=== PATIENT | female | born 1960 | race Caucasian/White ===

== ENCOUNTER → 2016-11-29 | Outpatient (CLI) | payer BC | END | disposition home or self-care (01) | LOC: GMA 14:16 | PROVIDERS: ATTEND Nurse Practitioner Acute Care | DX: R30.0 Dysuria (principal) ==

== ENCOUNTER 2016-12-25 22:55 | Emergency (ER) | payer BC ==
--- NOTE | 2016-12-25 23:27 | RAD ---
EXAM DESCRIPTION: Foot,Right 3 Views CLINICAL HISTORY: fall with right foot pain COMPARISON: None FINDINGS: AP, lateral and oblique views of the right foot were submitted. Acute fracture dislocation of the tarsometatarsal junction compatible with a Lisfranc injury. Correlation with a CT is recommended for further evaluation. There is no radiopaque foreign body material IMPRESSION: Acute fracture dislocation at the tarsometatarsal junction compatible with a Lisfranc injury. Correlation with a CT is recommended for further evaluation. Electronically signed by: Servando Lopez MD 12/25/2016 11:26 PM CDT
--- NOTE | 2016-12-25 23:28 | ED.PDOC ---
History of Present Illness - General Chief Complaint: Trauma Stated Complaint: fall Time Seen by Provider: 12/25/16 23:21 Source: patient Exam Limitations: no limitations - History of Present Illness Initial Comments: Sandra Woods 56 y/o female stated while going down the stairstep at home stepped on a frog then slipped fell right foot hitting cleanup gutter and twisted it.Pain on weight bearing of right foot. Occurred: just prior to arrival, this evening Pain - Lower Extremity: moderate: Right Foot Method of Injury: fell, twisted - right foot Improving Factors: rest Worsening Factors: movement Allergies/Adverse Reactions: Allergies NO KNOWN ALLERGY Allergy (Verified 12/25/16 23:09) Home Medications: Ambulatory Orders Acetaminophen W/ Codeine [Tylenol W/ CODEINE #3] 1 ea PO Q4HR PRN #20 12/26/16 Review of Systems - Review of Systems Constitutional: States: no symptoms reported EENTM: States: no symptoms reported Respiratory: States: no symptoms reported Cardiology: States: no symptoms reported Gastrointestinal/Abdominal: States: no symptoms reported Genitourinary: States: no symptoms reported Musculoskeletal: States: see HPI Skin: States: no symptoms reported Neurological: States: no symptoms reported Endocrine: States: no symptoms reported Past Medical History (General) - Patient Medical History Hx Asthma: Yes Hx of COPD: Yes Surgical History: cholecystectomy, other - hysterectomy - Social History Hx Physical Abuse: No Hx Emotional Abuse: No Hx Suspected Abuse: No - Activities of Daily Living Patient Lives Alone: No - family Grooming Ability: Independent Eating (Feeding) Ability: Independent Toileting Ability: Independent - Female History Patient is a Female of Child Bearing Age (10 -59 yrs old): No Family Medical History - Family History Son Hx Family Hypertension: Yes Hx Cardiac Disease: Yes Hx Family Diabetes: Yes Mother Family History: No Known Living Status: Still Living Physical Exam - Physical Exam General Appearance: Alert, Comfortable, No apparent distress Eyes, Ears, Nose, Throat: PERRL/EOMI, normal ENT inspection, TMs normal Neck: non-tender, full range of motion, supple Cardiovascular/Respiratory: regular rate, rhythm, no M/R/G, normal peripheral pulses Gastrointestinal/Abdominal: non-tender, no organomegaly Back: normal inspection, no CVA tenderness, no vertebral tenderness Thigh/Hip: normal inspection, non-tender, no evidence of injury Leg: normal inspection, non-tender, no evidence of injury Knee: normal inspection, non-tender, no evidence of injury Ankle: normal inspection, non-tender, no evidence of injury Foot: bone tenderness - right foot, limited ROM, soft tissue tenderness, swelling Neuro/Tendon: normal sensation, normal motor functions, normal tendon functions , responds to pain Mental Status: alert, oriented x 3 Skin: normal color, warm/dry Progress - Progress Progress: 12/26/16 02:24 Posterior leg splint applied by the nurse - EKG/XRAY/CT XRAY: acute comminuted fractures of the base of 1st,2nd,3rd meteatarsal bone w/ dorsal displacement dislocation.Please refer to full ct report Departure - Departure Clinical Impression: Fall (on) (from) other stairs and steps, initial encounter Fracture of metatarsal bone of right foot Qualifiers: Encounter type: initial encounter Metatarsal bone: unspecified metatarsal Fracture type: closed Fracture alignment: displaced Qualified Code(s): S92.301A - Fracture of unspecified metatarsal bone(s), right foot, initial encounter for closed fracture Time of Disposition: 02:27 Disposition: Discharge to Home or Self Care Departure Forms: ED Discharge - Pt. Copy, Patient Portal Self Enrollment Instructions: DI for Foot Fracture, Foot Fracture Referrals: Danyel Sheets MD [Primary Care Provider] - 1-2 Weeks Prescriptions: Acetaminophen W/ Codeine [Tylenol W/ CODEINE #3] 1 ea PO Q4HR PRN #20 PRN Reason: Pain Home Medications: Ambulatory Orders Acetaminophen W/ Codeine [Tylenol W/ CODEINE #3] 1 ea PO Q4HR PRN #20 12/26/16
[2016-12-26 00:57] VITALS: O2SAT 98
[2016-12-26] MEDS ORDERED: HYDROcodone 10MG/APAP 325MG 1 EA TAB PO ONE (01:43)
[2016-12-26] MEDS ORDERED: MORPHINE SULFATE INJ 10 MG/ML VIAL IM ONE (01:44)
--- NOTE | 2016-12-26 01:55 | CT ---
EXAM DESCRIPTION: Lower Extremity CLINICAL HISTORY: pain right foot COMPARISON: Plain films performed the same day TECHNIQUE: Contiguous axial images of the right foot were obtained followed by reconstruction images. This exam was performed according to our departmental dose-optimization program, which includes automated exposure control, adjustment of the mA and/or kV according to patient size and/or use of iterative reconstruction technique. FINDINGS: There is an acute fracture dislocation at the level of the metatarsal tarsal junction with comminuted fractures at the base of the first, second and third metatarsal bones. There is dorsal displacement of the third, second and first metatarsal bones in relation to the tarsal bones. There is an enthesophyte at the plantar aspect of the calcaneus. There is a nondisplaced oblique fracture also noted at the shaft of the first metatarsal bone. There is a small fracture of the anterior aspect of the medial cuneiform. IMPRESSION: Acute comminuted fractures of the base of the first, second and third metatarsal bone with dorsal displacement/dislocation. Small fracture of the anterior aspect of the medial cuneiform and nondisplaced fracture at the shaft of the first metatarsal bone. Electronically signed by: Servando Lopez MD 12/26/2016 1:53 AM CDT
[2016-12-26] MEDS ORDERED: HYDROCOD/APAP 10/325 (ER DISP) # 3 tablets PO ONE (02:16)
[2016-12-26 03:07] VITALS: BP 124/66; TEMP 97.2
== END 2016-12-26 02:50 | disposition home or self-care (01) ==
LOC: ER 22:55
DX: S92.301A Fracture of unspecified metatarsal bone(s), right foot, initial encounter for closed fracture (principal); J44.9 Chronic obstructive pulmonary disease, unspecified; W10.9XXA Fall (on) (from) unspecified stairs and steps, initial encounter; Y92.009 Unspecified place in unspecified non-institutional (private) residence as the place of occurrence of the external cause
CPT/HCPCS: 73630; 73700; J2270

== ENCOUNTER 2017-06-16 13:42 | Emergency (ER) | payer BC ==
[2017-06-16] MEDS ORDERED: NITROGLYCERIN 0.4 MG 25 EA TAB SL ONE (14:06)
[2017-06-16] MEDS ORDERED: ASPIRIN (CHEWABLE) 81 MG TAB PO ONE (14:06)
[2017-06-16 14:07] VITALS: TEMP 99.6
--- NOTE | 2017-06-16 14:08 | ED.PDOC ---
History of Present Illness - General Chief Complaint: Respiratory Problem Stated Complaint: shortness of breath,cough Time Seen by Provider: 06/16/17 14:05 Source: patient Exam Limitations: no limitations - History of Present Illness Initial Comments: Raissa Woods 57 y/o female came to ER with 2 days history of productive cough , SOB,and rapid heart rate.Denies chest pains,dizziness chills .fever. Timing/Duration: other - 48 hours Severity: moderate Activities at Onset: none Possible Cause: unknown cause Improving Factors: nothing Worsening Factors: nothing Associated Symptoms: cough Respiratory Risk Factors: no cause identified Allergies/Adverse Reactions: Allergies NO KNOWN ALLERGY Allergy (Verified 12/25/16 23:09) Home Medications: Ambulatory Orders levoFLOXacin [Levaquin] 500 mg PO DAILY #7 tab 06/16/17 Review of Systems - Review of Systems Constitutional: States: no symptoms reported EENTM: States: nose congestion Respiratory: States: see HPI, cough Cardiology: States: no symptoms reported Gastrointestinal/Abdominal: States: no symptoms reported Genitourinary: States: no symptoms reported Musculoskeletal: States: no symptoms reported Skin: States: no symptoms reported Neurological: States: no symptoms reported All other Systems: Reviewed and Negative, No Change from Baseline Past Medical History (General) - Patient Medical History Hx Stroke: No Hx Asthma: Yes Hx of COPD: Yes Hx Congestive Heart Failure: No Hx Diabetes: No Surgical History: cholecystectomy, other - hysterectomy - Vaccination History Hx Tetanus, Diphtheria Vaccination: Yes - 1 year ago Hx Influenza Vaccination: No Hx Pneumococcal Vaccination: No - Social History Hx Tobacco Use: Yes Hx Chewing Tobacco Use: No Hx Alcohol Use: No Hx Substance Use: No Hx Substance Use Treatment: No Hx Depression: No Hx Physical Abuse: No Hx Emotional Abuse: No Hx Suspected Abuse: No - Female History Patient : No Family Medical History - Family History Mother Living Status: Son Hx Family Hypertension: Yes Hx Cardiac Disease: Yes Hx Family Diabetes: Yes Physical Exam - Physical Exam General Appearance: Alert, Comfortable, No apparent distress Eyes, Ears, Nose, Throat Exam: PERRL/EOMI, normal ENT inspection, pharynx normal Neck: non-tender, full range of motion, supple Respiratory: no respiratory distress, no accessory muscle use, rales Cardiovascular/Chest: normal peripheral pulses, no gallop, no murmur, tachycardia Peripheral Pulses: radial,right: 2+, radial,left: 2+ Gastrointestinal/Abdominal: normal bowel sounds, non tender, soft, no organomegaly Extremity: no pedal edema, no calf tenderness Neurologic: alert, oriented x 3 Skin Exam: normal color, warm/dry Progress - Progress Progress: 06/16/17 15:09 Vital Signs - 8 hr 06/16/17 13:58 Temperature 99.6 F Pulse Rate [ 127 H Right Brachial] Respiratory 20 Rate Blood Pressure 140/82 [Right Arm] O2 Sat by Pulse 91 L Oximetry - Results/Orders Results/Orders: Laboratory Tests 06/16/17 06/16/17 06/16/17 14:18 14:18 14:35 WBC 16.2 H RBC 4.92 Hgb 15.5 Hct 45.8 MCV 93.0 MCH 31.6 H MCHC 33.9 RDW 12.6 Plt Count 332 MPV 7.7 Absolute Neuts (auto) 12.50 H Absolute Lymphs (auto) 2.10 Absolute Monos (auto) 1.10 H Absolute Eos (auto) 0.20 Absolute Basos (auto) 0.20 H Neutrophils % 77.2 Lymphocytes % 13.2 L Monocytes % 7.0 Eosinophils % 1.4 Basophils % 1.2 PT 12.4 INR 1.100 PTT (SP) 27.4 D-Dimer, Quantitative < 230 Sodium 135 Potassium 3.9 Chloride 100 L Carbon Dioxide 26 Anion Gap 12.9 BUN 9 Creatinine 0.64 BUN/Creatinine Ratio 14.1 Random Glucose 114 H Serum Osmolality 269.6 L Lactic Acid Calcium 9.3 Magnesium 1.7 L Total Bilirubin 0.5 Direct Bilirubin < 0.1 Indirect Bilirubin 0.4 AST 36 ALT 46 Alkaline Phosphatase 155 H Creatine Kinase 70 CK-MB (CK-2) 1.6 CK-MB (CK-2) % Not Reportable Troponin I < 0.02 B-Natriuretic Peptide 19.7 Serum Total Protein 7.4 Albumin 3.7 Urine Color Urine Appearance Urine pH Ur Specific [place] Urine Protein Urine Glucose (UA) Urine Ketones Urine Blood Urine Nitrite Urine Bilirubin Urine Urobilinogen Ur Leukocyte Esterase Urine RBC Urine WBC Ur Epithelial Cells Urine Bacteria Urine Opiates Screen Negative Urine Barbiturates Negative Ur Phencyclidine Scrn Negative U Amphetamin/Meth Scrn Positive H U Benzodiazepines Scrn Negative U Cocaine Metab Screen Negative U Cannabinoids Screen Positive H 06/16/17 06/16/17 06/16/17 15:00 15:48 16:56 WBC RBC Hgb Hct MCV MCH MCHC RDW Plt Count MPV Absolute Neuts (auto) Absolute Lymphs (auto) Absolute Monos (auto) Absolute Eos (auto) Absolute Basos (auto) Neutrophils % Lymphocytes % Monocytes % Eosinophils % Basophils % PT INR PTT (SP) D-Dimer, Quantitative Sodium Potassium Chloride Carbon Dioxide Anion Gap BUN Creatinine BUN/Creatinine Ratio Random Glucose Serum Osmolality Lactic Acid 0.9 Calcium Magnesium Total Bilirubin Direct Bilirubin Indirect Bilirubin AST ALT Alkaline Phosphatase Creatine Kinase CK-MB (CK-2) CK-MB (CK-2) % Troponin I < 0.02 B-Natriuretic Peptide Serum Total Protein Albumin Urine Color Yellow Urine Appearance Sl cloudy Urine pH 8.0 H Ur Specific [place] 1.020 Urine Protein Negative Urine Glucose (UA) Negative Urine Ketones Negative Urine Blood Trace-intact H Urine Nitrite Positive H Urine Bilirubin Negative Urine Urobilinogen 0.2 Ur Leukocyte Esterase Negative Urine RBC 0-1 Urine WBC 3-5 H Ur Epithelial Cells 3-5 Urine Bacteria 4+ H Urine Opiates Screen Urine Barbiturates Ur Phencyclidine Scrn U Amphetamin/Meth Scrn U Benzodiazepines Scrn U Cocaine Metab Screen U Cannabinoids Screen - EKG/XRAY/CT EKG: Sinus, Tachy Comments: heart rate 123 XRAY: chest - mild interstitial infiltrate right lung base Departure - Departure Clinical Impression: Pneumonia Qualifiers: Pneumonia type: due to unspecified organism Laterality: right Lung location: lower lobe of lung Qualified Code(s): J18.1 - Lobar pneumonia, unspecified organism Urinary tract infection Qualifiers: Urinary tract infection type: site unspecified Hematuria presence: without hematuria Qualified Code(s): N39.0 - Urinary tract infection, site not specified Time of Disposition: 18:36 Disposition: Discharge to Home or Self Care Departure Forms: ED Discharge - Pt. Copy, Patient Portal Self Enrollment Instructions: DI for Pneumonia -- Adult, Urinary Tract Infection, DI for Urinary Tract Infection (UTI) Referrals: Bill Avendaño MD [Primary Care Provider] - 1-2 Weeks Prescriptions: levoFLOXacin [Levaquin] 500 mg PO DAILY #7 tab Home Medications: Ambulatory Orders levoFLOXacin [Levaquin] 500 mg PO DAILY #7 tab 06/16/17 Additional Instructions: Return to emergency room as needed;Follow up with primary Md 06/20/2017;May take over the counter cough medicine Delsym 2 teaspoons am/pm for cough
--- NOTE | 2017-06-16 14:30 | RAD ---
EXAM DESCRIPTION: Chest,1 View CLINICAL HISTORY: pain COMPARISON: 06 February 2009 TECHNIQUE: AP portable chest FINDINGS: Minimal interstitial infiltrate is observed at the right lung base. The left chest is clear. The heart is within range of normal. IMPRESSION: Mild interstitial infiltrate is observed at the right lung base. Electronically signed by: Aron Oates MD 06/16/2017 2:29 PM [facility]
[2017-06-16] MEDS ORDERED: IPRATROPIUM/ALBUTEROL 3 ML VIAL NEB ONE (14:58)
[2017-06-16] MEDS ORDERED: SODIUM CHLORIDE 0.9% 500ML 500 ML IVS ONE (15:00)
[2017-06-16] MEDS ORDERED: MAGNESIUM SULFATE PREMIX 2GM 2 GM in PREMIX BAG 1 BAG IVPB ONE (15:01)
[2017-06-16] MEDS ORDERED: MAGNESIUM SULFATE PREMIX 2GM 50 ML IVPB ONE (15:36)
[2017-06-16] MEDS ORDERED: levoFLOXacin 500MG IV 500 MG in PREMIX BAG 1 BAG IVPB ONE (17:00)
[2017-06-16] MEDS ORDERED: levoFLOXacin 500MG IV 100 ML IVPB ONE (17:27)
[2017-06-16 18:45] VITALS: BP 128/77; O2SAT 94
== END 2017-06-16 18:45 | disposition home or self-care (01) ==
LOC: ER 13:42
DX: J18.1 Lobar pneumonia, unspecified organism (principal); N39.0 Urinary tract infection, site not specified; J44.9 Chronic obstructive pulmonary disease, unspecified; Z87.891 Personal history of nicotine dependence
CPT/HCPCS: 36415; 71045; 80048; 80076; 80307; 81001; 82550; 82553; 83605; 83880; 84484; 85025; 85379; 85610; 85730; 87086; 87804; 93005; 94640; J1956; J3475; J7040; J7620

== ENCOUNTER 2017-09-04 09:07 | Inpatient (IN) | payer BC ==
[2017-09-04] MEDS ORDERED: methylPREDNISolone SODIUM SUC 125 MG/2 ML VIAL IV ONE (09:27)
[2017-09-04] MEDS ORDERED: IPRATROPIUM/ALBUTEROL 3 ML VIAL NEB ONE (09:27)
--- NOTE | 2017-09-04 09:33 | ED.PDOC ---
History of Present Illness - General Chief Complaint: Respiratory Problem Stated Complaint: Increasing shortness of breath Time Seen by Provider: 09/04/17 09:20 Source: patient Exam Limitations: no limitations - History of Present Illness Initial Comments: Patient comes in with 3 day history of worsening shortness of breath. Patient has been told in the past that she has COPD. However, this has always been in the ER and she is not on any controller medications. She states 2 weeks ago she had an episode and was given steroids and antibiotics. She got better but admits she did not finish the antibiotics. She states something else has to be going on because it keeps coming back. Several days ago her grandchildren were sick and she became ill sightly after. She had subjective fever, nasal congestion, and burning of her eyes. She has been coughing up thick yellow mucous. She now cannot catch her breath and her chest feels tight with deep inspiration. PMH 1. COPD PSH 1. Hyst 2. Allison Social >40 pack year history with 1 pack a day smoking now. No ETOH no drug use Timing/Duration: days - 3 days Severity: severe Activities at Onset: other - had several days of cough, congestion, subjective fever Possible Cause: occasional episodes Improving Factors: nothing Worsening Factors: movement Associated Symptoms: cough, weakness, wheezing Respiratory Risk Factors: no cause identified Allergies/Adverse Reactions: Allergies NO KNOWN ALLERGY Allergy (Verified 09/04/17 09:19) Home Medications: Ambulatory Orders NK [NK] 09/04/17 Review of Systems - Review of Systems Constitutional: States: fever. Denies: chills EENTM: States: nose congestion. Denies: eye pain, ear pain, ear discharge Respiratory: States: cough, orthopnea, wheezing Cardiology: States: no symptoms reported. Denies: chest pain, edema, palpitations Gastrointestinal/Abdominal: States: no symptoms reported. Denies: abdominal pain, constipation, diarrhea, nausea, vomiting Genitourinary: States: no symptoms reported Musculoskeletal: States: no symptoms reported Skin: States: no symptoms reported Neurological: States: no symptoms reported Past Medical History (General) - Patient Medical History Hx Stroke: No Hx Asthma: Yes Hx of COPD: Yes Hx Congestive Heart Failure: No Hx Diabetes: No Surgical History: cholecystectomy - Vaccination History Hx Tetanus, Diphtheria Vaccination: Yes - 1 year ago Hx Influenza Vaccination: No Hx Pneumococcal Vaccination: No - Social History Hx Tobacco Use: Yes Hx Chewing Tobacco Use: No Hx Alcohol Use: No Hx Substance Use: No Hx Substance Use Treatment: No Hx Depression: No Hx Physical Abuse: No Hx Emotional Abuse: No Hx Suspected Abuse: No - Female History Patient : No Family Medical History - Family History Mother Living Status: Son Hx Family Hypertension: Yes Hx Cardiac Disease: Yes Hx Family Diabetes: Yes Physical Exam - Physical Exam General Appearance: Alert, Comfortable Eyes, Ears, Nose, Throat Exam: PERRL/EOMI, TMs normal, pharynx normal Neck: non-tender, full range of motion, supple, normal inspection Respiratory: wheezing, other - tight BS in all artis with wheezes and no crackles Cardiovascular/Chest: regular rate, rhythm, no edema, no gallop, no JVD, no murmur Peripheral Pulses: radial,right: 2+ Gastrointestinal/Abdominal: normal bowel sounds, non tender, soft, no organomegaly, no pulsatile mass Neurologic: alert, oriented x 3 Progress - Progress Progress: 09/04/17 10:30 09/05/17 09:00 [facility] Daily Laboratory Results WBC 15.7 K/mm3 (4.8-10.8) H 09/04/17 09:39 RBC 4.82 M/mm3 (4.20-5.40) 09/04/17 09:39 Hgb 15.3 gm/dL (12.0-16.0) 09/04/17 09:39 Hct 45.3 % (36.0-47.0) 09/04/17 09:39 MCV 93.9 fl (81.0-99.0) 09/04/17 09:39 MCH 31.7 pg (27.0-31.0) H 09/04/17 09:39 MCHC 33.7 g/dL (33.0-37.0) 09/04/17 09:39 RDW 12.8 % (11.5-14.5) 09/04/17 09:39 Plt Count 299 K/mm3 (130-400) 09/04/17 09:39 MPV 7.8 fl (7.40-10.4) 09/04/17 09:39 Absolute Neuts (auto) 12.20 K/uL (1.8-6.8) H 09/04/17 09:39 Absolute Lymphs (auto) 2.10 K/uL (1.0-3.4) 09/04/17 09:39 Absolute Monos (auto) 0.90 K/uL (0.2-0.8) H 09/04/17 09:39 Absolute Eos (auto) 0.40 K/uL (0.0-0.4) 09/04/17 09:39 Absolute Basos (auto) 0.10 K/uL (0.0-0.1) 09/04/17 09:39 Neutrophils % 77.8 % (42.0-78.0) 09/04/17 09:39 Lymphocytes % 13.3 % (20.0-50.0) L 09/04/17 09:39 Monocytes % 5.6 % (2.0-9.0) 09/04/17 09:39 Eosinophils % 2.4 % (1.0-5.0) 09/04/17 09:39 Basophils % 0.9 % (0.0-2.0) 09/04/17 09:39 Sodium 140 mmol/L (135-145) 09/04/17 09:39 Potassium 4.3 mmol/L (3.6-5.0) 09/04/17 09:39 Chloride 105 mmol/L (101-111) 09/04/17 09:39 Carbon Dioxide 28 mmol/L (21-31) 09/04/17 09:39 Anion Gap 11.3 (12-18) L 09/04/17 09:39 BUN 13 mg/dL (7-18) 09/04/17 09:39 Creatinine 0.70 mg/dL (0.6-1.3) 09/04/17 09:39 BUN/Creatinine Ratio 18.6 (10-20) 09/04/17 09:39 Random Glucose 183 mg/dL (70-105) H 09/04/17 09:39 Serum Osmolality 284.2 mOsm/L (275-295) 09/04/17 09:39 Calcium 9.4 mg/dL (8.4-10.2) 09/04/17 09:39 Total Bilirubin 0.7 mg/dL (0.2-1.0) 09/04/17 09:39 AST 44 IU/L (10-42) H 09/04/17 09:39 ALT 49 IU/L (10-60) 09/04/17 09:39 Alkaline Phosphatase 127 IU/L (42-121) H 09/04/17 09:39 Troponin I 0.02 ng/mL (0.01-0.05) 09/04/17 09:39 B-Natriuretic Peptide 18.7 pg/ml (0-100) 09/04/17 09:39 Serum Total Protein 7.7 gm/dL (6.4-8.2) 09/04/17 09:39 Albumin 3.6 g/dl (3.2-5.5) 09/04/17 09:39 Globulin 4.1 gm/dL (2.3-3.5) H 09/04/17 09:39 Albumin/Globulin Ratio 0.9 (1.1-1.9) L 09/04/17 09:39 - Results/Orders Results/Orders: Patient Name: SAMANTHA CHAVEZ Gender: Female Date of : 1960 Referring Physician: HUNTER BENNETT Organization: [facility] Accession Number: [id number] Requested Date: September 04, 2017 09:27 Report Status: Final Requested Procedure: 1 Procedure Description: Chest,2 Views Modality: CR Findings Reporting MD: Cj Randall Fellow MD: Not available Dictation Time: Cupola Melter Helper: Not available Scientific Programmer Date: Procedure: XR CHEST 2 VIEWS Exam Date: 09/04/2017 9:27 AM CDT Ordering Provider: HUNTER BENNETT Clinical Indication: SOB/COPD Comparison: June 16, 2017 Findings: Lungs are hyperexpanded. No lobar consolidation, pleural effusion, or pneumothorax. Heart size is within normal limits. No acute osseous abnormality. Impression: COPD. No lobar consolidation. Departure - Departure Clinical Impression: COPD exacerbation Disposition: Admit Patient Condition: Good Departure Forms: ED Discharge - Pt. Copy, Patient Portal Self Enrollment Referrals: Bill Avendaño MD [Primary Care Provider] - 1-2 Weeks Home Medications: Ambulatory Orders NK [NK] 09/04/17 Comments: called for admission. Patient has O2 Sats of 86-90 % on RA and lungs have not cleared despited 4 breathing treatments and IV Solumedrol. Accepted by credit and collections representative [employer] [facility] at [phone]
[2017-09-04] MEDS ORDERED: LEVALBUTEROL NEBS 1.25 MG/3 ML VIAL NEB ONE ×2 (09:58→10:34)
--- NOTE | 2017-09-04 09:59 | RAD ---
Procedure: XR CHEST 2 VIEWS Exam Date: 09/04/2017 9:27 AM CDT Ordering Provider: HUNTER BENNETT Clinical Indication: SOB/COPD Comparison: June 16, 2017 Findings: Lungs are hyperexpanded. No lobar consolidation, pleural effusion, or pneumothorax. Heart size is within normal limits. No acute osseous abnormality. Impression: COPD. No lobar consolidation. Electronically signed by: Cj Randall MD 09/04/2017 9:58 AM CDT
[2017-09-04] MEDS ORDERED: cefTRIAXone SODIUM 2 GM in SODIUM CHL 0.9% 100ML MINI-BAG 100 ML IVPB ONE (10:35)
[2017-09-04] MEDS ORDERED: SODIUM CHL 0.9% 100ML MINI-BAG 100 ML IVPB ONE (10:53)
--- NOTE | 2017-09-04 13:57 | HP ---
SUPERVISING PHYSICIAN: Clarence Little M.D. CHIEF COMPLAINT: Worsening shortness of breath. HISTORY OF PRESENT ILLNESS: Ms. Woods is a 57 year-old female that presented to the Emergency Department today complaining of increasing shortness of breath that has been occurring over the last 3 days. She has been treated for chronic obstructive pulmonary disease in the past and actually is supposed to be wearing oxygen at home and is on Symbicort which she reports she does need it as needed. She does have a history of smoking approximately a pack a day and continues to smoke. She noted that she had been in the walk-in clinic [facility] in the last 2 weeks and treated for an upper respiratory infection, and was started on Augmentin and tapering prednisone which she finished the steroid pack but stopped 4 days short of the Augmentin. She noted that she is beginning to have worsening shortness of breath with increasing purulent- looking sputum and due to worsening symptoms presented to the E. R. today for further evaluation and treatment. She denied any chest pains on admission. Laboratory studies showed she did have a leukocytosis of 15,700 with a left shift. Vital signs showed that she was hypoxic on room air satting 87% at rest , but was afebrile with a temperature of 98.7, initially short of breath with respirations of 28 improving after a breathing treatment. Her chest x-ray per radiology interpretation showed COPD but no lobular consolidations. Given her degree of desaturation and having failed to respond to outpatient treatment plan of previous exacerbation of COPD, the patient is now going to be admitted to the Medical/Surgical floor for ongoing treatment of exacerbation of COPD with concerns for possible early pneumonia. She was admitted in stable condition. PAST MEDICAL HISTORY: 1. Chronic obstructive pulmonary disease with poor control. PAST SURGICAL HISTORY: 1. Hysterectomy. 2. Cholecystectomy. 3. Right foot surgery in 2017. CURRENT MEDICATIONS: 1. Symbicort. 2. Augmentin. 3. Tapering prednisone pack. ALLERGIES: NO KNOWN DRUG ALLERGIES. FAMILY HISTORY: Unremarkable and noncontributory. SOCIAL HISTORY: The patient lives in [place]. She is retired. 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 She is and lives with her ex-. She does smoke 1 pack a day and has for approximately 30 years. She denies any alcohol or illicit drug use. REVIEW OF SYSTEMS: CONSTITUTIONAL: Denies any chills but notes a subjective fever and general malaise. HEENT: Notes nasal congestion. Denies any ear aches, sore throat. RESPIRATORY: As noted in History of Present Illness, increasing cough with orthopnea and exertional dyspnea. CARDIOVASCULAR: Denies any chest pains, palpitations or pedal edema. GASTROINTESTINAL: Denies any abdominal pains, constipation, diarrhea or nausea or vomiting. GENITOURINARY: Denies any dysuria, hematuria or other urinary symptoms. NEUROLOGIC: Denies any ataxia, seizures or other neurological deficits. PHYSICAL EXAMINATION: VITAL SIGNS: Initial presentation to the E. . showed she had a temperature 98.7 with pulse 139. She was satting 89 to 91% on room air with some mild distress with respirations 28, blood pressure 123/87. After breathing treatment and initiation of treatment, she was satting up to 91% and 94% on nasal cannula. Heart rate 115, blood pressure 112/63. She was showing respirations of 20. Admission weight 77.0 kg. GENERAL: On admission to the Medical/Surgical floor, the patient appears to be comfortable in no acute distress, but somewhat anxious. HEENT: Tympanic membranes are clear bilaterally. Oropharynx was pink with posterior pharynx having some erythema but no lesions. NECK: Supple, non-tender with full range of motion. CHEST: Decreased breath sounds throughout with some inspiratory wheezing. No rales or rhonchi were noted. CARDIOVASCULAR: Regular rate and rhythm without appreciable murmurs, gallops, or rubs. ABDOMEN: Soft, non-tender. Positive bowel sounds. EXTREMITIES: No clubbing, cyanosis or edema. NEUROLOGIC: She is alert and oriented times three. LABORATORY STUDIES: Leukocytosis of 15,700 with hemoglobin 15.3, hematocrit 45.3 with a left shift. Chemistries showed normal electrolytes with potassium 4.3, BUN 13, creatinine 0.7, glucose 183, hemoglobin A1c was 6.1, magnesium 1.7. AST was 44, ALT normal at 49, alkaline phosphatase 127. Troponin 0.02. BNP was normal at 18. Urinalysis was pending. MICROBIOLOGY: Sputum culture is pending. Blood cultures are pending. Influenza A and B pending. Strep screen pending. RADIOLOGY: Chest x-ray in the Emergency Department showed per radiology interpretation COPD changes consistent with COPD but no lobular consolidations. ASSESSMENT: 1. Acute exacerbation of chronic obstructive pulmonary disease having failed to respond to outpatient treatment plan with concerns for early pneumonia community acquired. 2. Leukocytosis with concerns for early pneumonia as noted in #1, possibly some exacerbation from recent steroid administration. 3. Hypoxia as noted with room air saturations of 89% at rest in a chronic smoker with chronic obstructive pulmonary disease exacerbation. 4. Poor medical compliance regarding chronic obstructive pulmonary disease treatment. 5. Nicotine addiction in a chronic smoker encouraged to stop smoking. PLAN: The patient will be admitted to the Medical/Surgical floor for ongoing treatment of exacerbation of her chronic obstructive pulmonary disease. She will be started on aggressive pulmonary hygiene with chest percussive therapy, q.i.d. DuoNeb treatments, Pulmicort every 6 hours for at least 4 doses. She was given a dose of Solu-Medrol 125 mg to be continued every 6 hours at 60 mg for 4 doses. She will be on DVT prophylaxis. She will be started on Protonix for gastric protection given previous steroid administrations and current corticosteroid therapy. Will plan to do Pulmonary Function Test either today or tomorrow. The patient's length of stay anticipated to be at least 2 to 3 days. She has been started on antibiotics with concerns for underlying community acquired pneumonia with parenteral antibiotics to include Rocephin and azithromycin with sputum cultures pending. 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 She does note that she has oxygen at home which she does not wear on a regular basis and she also has Symbicort and a nebulizer machine that she takes albuterol for that she does not utilize. I did talk to her at length on smoking cessation and maintenance of her COPD in the near future. Once discharged, she will need close clinical followup and further management and possible pulmonary consultation as an outpatient. Until then, will continue to monitor and treat appropriately. #[id number] [facility]
[2017-09-04] MEDS ORDERED: ALBUTEROL SULFATE 2.5 MG/3 ML VIAL NEB PRN (14:59)
[2017-09-04] MEDS ORDERED: ACETAMINOPHEN 325 MG TAB PO PRN (14:59)
--- NOTE | 2017-09-04 15:08 | PCM.CORE ---
Physician DVT/VTE - Nurse DVT Assessment & Total Each Risk Factor Represents 1 Point: Age 41-60, Hx of smoking past year Each Risk Factor is 1 Point: Obesity (BMI >25) DVT Assessment Score: 3 - 3-4 High Risk Treatments: Early Ambulation *, Sequential Compression Device Pharmacological: Enoxaparin 40 mg SQ Daily
[2017-09-04] MEDS ORDERED: AZITHROMYCIN 250 MG TAB PO ONE (15:22)
[2017-09-04] MEDS ORDERED: NICOTINE PATCH 14 MG TD SCH (15:30)
[2017-09-04] MEDS: IPRATROPIUM/ALBUTEROL 3 ML VIAL NEB SCH ×2 (15:48→19:57)
[2017-09-04] MEDS: AZITHROMYCIN 250 MG TAB PO SCH (15:57)
[2017-09-04] MEDS: KCL 20MEQ/0.45% NS 1,000 ML IVS PRN (15:57)
[2017-09-04] MEDS: ENOXAPARIN SODIUM 40 MG/0.4 ML SYG SUBCU SCH (15:57)
[2017-09-04] MEDS: IV SET AND CAP CHANGE INJ INJ SCH (15:58)
[2017-09-04] MEDS ORDERED: MAGNESIUM SULFATE PREMIX 2GM 2 GM in PREMIX BAG 1 BAG IVPB ONE (17:02)
[2017-09-04] MEDS ORDERED: MAGNESIUM SULFATE PREMIX 2GM 50 ML IVPB ONE (17:15)
[2017-09-04] MEDS: methylPREDNISolone SODIUM SUC 125 MG/2 ML VIAL IV SCH ×2 (17:18→23:15)
[2017-09-04] MEDS ORDERED: SODIUM CHLORIDE 0.9% 1000ML 1,000 ML IVS ONE ×3 (18:06→23:05)
[2017-09-04] MEDS ORDERED: BUDESONIDE NEBS 0.25 MG/2 ML INH ONE (19:51)
[2017-09-04] MEDS: BUDESONIDE NEBS 0.5 MG/2 ML VIAL NEB SCH (19:55)
[2017-09-04] MEDS ORDERED: SODIUM CHL 0.9% 50ML MIN-BAG+ 50 ML IVPB ONE (20:13)
[2017-09-04] MEDS ORDERED: cefTRIAXone SODIUM 1 GM VIAL ONE (20:13)
[2017-09-04] MEDS ORDERED: methylPREDNISolone SODIUM SUC 125 MG/2 ML VIAL IV SCH (21:00)
[2017-09-04] MEDS: cefTRIAXone SODIUM 1 GM in SODIUM CHL 0.9% 50ML MIN-BAG+ 50 ML IVPB SCH (23:14)
[2017-09-04] MEDS: SODIUM CHLORIDE 0.9% (FLUSH) 10 ML SYG IV PRN (23:15)
[2017-09-05] MEDS ORDERED: PANTOPRAZOLE SODIUM IV 40 MG VIAL ONE (04:07)
[2017-09-05] MEDS: methylPREDNISolone SODIUM SUC 125 MG/2 ML VIAL IV SCH ×2 (05:28→11:05)
[2017-09-05] MEDS: SODIUM CHLORIDE 0.9% (FLUSH) 10 ML SYG IV PRN ×4 (05:29→22:43)
[2017-09-05] MEDS ORDERED: PANTOPRAZOLE SODIUM IV 40 MG VIAL IV SCH (06:30)
--- NOTE | 2017-09-05 07:11 | RAD ---
EXAM DESCRIPTION: Chest,2 Views CLINICAL HISTORY: COPD exacerbation COMPARISON: September 04, 2017 FINDINGS: The cardiomediastinal silhouette is unremarkable. Subsegmental atelectasis or scarring is again seen in both lung bases, unchanged from yesterday. No airspace consolidation or pleural effusion. The lungs appear slightly hyperinflated. There is no pneumothorax or acute fracture. IMPRESSION: Upper normal lung volumes consistent with provided history of COPD. No acute intrathoracic abnormality. Electronically signed by: Asif Lyon MD 09/05/2017 7:10 AM CDT
[2017-09-05] MEDS: KCL 20MEQ/0.45% NS 1,000 ML IVS PRN ×2 (07:42→20:48)
[2017-09-05] MEDS ORDERED: cefTRIAXone SODIUM 1 GM VIAL ONE ×2 (08:23→19:33)
[2017-09-05] MEDS ORDERED: SODIUM CHL 0.9% 50ML MIN-BAG+ 50 ML IVPB ONE ×2 (08:23→19:32)
[2017-09-05] MEDS: IPRATROPIUM/ALBUTEROL 3 ML VIAL NEB SCH ×4 (08:25→20:10)
[2017-09-05] MEDS: BUDESONIDE NEBS 0.5 MG/2 ML VIAL NEB SCH ×2 (08:26→20:10)
[2017-09-05] MEDS: NICOTINE PATCH 14 MG TD SCH (08:49)
[2017-09-05] MEDS: ENOXAPARIN SODIUM 40 MG/0.4 ML SYG SUBCU SCH (08:49)
[2017-09-05] MEDS: cefTRIAXone SODIUM 1 GM in SODIUM CHL 0.9% 50ML MIN-BAG+ 50 ML IVPB SCH ×2 (08:50→20:46)
[2017-09-05] MEDS ORDERED: ALPRAZolam 0.25 MG TAB PO ONE (09:30)
--- NOTE | 2017-09-05 10:51 | CT ---
EXAM DESCRIPTION: CTA Chest CLINICAL HISTORY: Elevated Dimer, Hypoxia- PE? COMPARISON: None available TECHNIQUE: Chest CTA was performed with IV contrast including MIP and/or Three-D reconstructed images. This exam was performed according to our departmental dose-optimization program, which includes automated exposure control, adjustment of the mA and/or kV according to patient size and/or use of iterative reconstruction technique. FINDINGS: There is no pulmonary embolus. The thyroid and thoracic inlet are unremarkable. No thoracic aortic injuries or dissection. There is a small hiatal hernia. No pleural or pericardial effusion. No mediastinal or hilar adenopathy. The central airways are clear. Emphysematous changes are noted without airspace consolidation or lung mass. There is an irregular but somewhat nodular 5 mm lesion in the right upper lobe (series 2 image 38). No additional lung nodule is identified. The gallbladder is surgically absent. Visualized portions of the upper abdomen are otherwise unremarkable for arterial phase technique. No fracture or pneumothorax. IMPRESSION: Emphysema, but no pulmonary embolus or other acute intrathoracic abnormality. 5 mm noncalcified right upper lobe nodule. Per updated Fleischner Society recommendations, follow-up chest CT in 12 months should be considered. Small hiatal hernia. Electronically signed by: Asif Lyon MD 09/05/2017 10:50 AM CDT
[2017-09-05] MEDS ORDERED: METOPROLOL TARTRATE INJ 5 MG/5 ML VIAL IV ONE (11:15)
[2017-09-05] MEDS ORDERED: SODIUM CHLORIDE 0.65% NASAL SPRAY 45 ML BTTL BNAS PRN (11:41)
--- NOTE | 2017-09-05 12:50 | PN ---
SUPERVISING PHYSICIAN: Conner Shi MD DATE: 09/05/17 SUBJECTIVE: The patient is making slow clinical progress. She is not wanting to be compliant with treatment, especially with her oxygen. She is refusing her oxygen. She says it dries her nose out and irritates her. She refused a couple of breathing treatments as well. She does remain afebrile. OBJECTIVE: VITAL SIGNS: Temperature 98. Pulse tachycardiac between 111 and 130 with blood pressure 142/79. Respirations 20. Saturation 85% to 91% on room air at rest. I&Os show positive balance of 2184 with 3134 in, 950 out. Weight 80.0 kg. CHEST: Lung sounds still diminished throughout with slight improvement in aeration and no obvious wheezing today. HEART: Tachycardic rhythm on the monitor. ABDOMEN: Soft, nontender. Positive bowel sounds. EXTREMITIES: No cyanosis, clubbing or edema. NEUROLOGIC: Alert and oriented times three. LABORATORY: White count elevated to 19,600, hemoglobin 12.4, hematocrit 36.8, platelet count 269,000. Differential does show a left shift. Coagulation studies today do show elevated D-dimer of 233, but normal PT and PT&T. Chemistries show normal electrolytes today with potassium 4.2, BUN 11, creatinine 0.6. Lactic acid on admission to Medical/Surgical Floor was 3.7. Post initiation of treatment and after 6 hours shows it down to 3.1 and then this morning was down to 1.9. Magnesium up to 1.8. Group A strep was negative. MICROBIOLOGY: Sputum culture pending. Group A strep culture showed no growth at 24 hours. Influenza swab for A and B were both negative. Blood cultures remain negative. EK lead EKG shows sinus tachycardia with no ST or T wave changes noted. RADIOLOGY: CT of chest is pending. Chest x-ray this morning per radiologic interpretation showed upper limits of normal lung consistent with chronic obstructive pulmonary disease but no intrathoracic abnormalities. ASSESSMENT: 1. Acute exacerbation of chronic obstructive pulmonary disease having failed to respond to outpatient treatment plan with Augmentin and tapering steroids with concerns for early pneumonia, community acquired. 2. Sepsis secondary to #1, questionable community acquired pneumonia with the patient having hypoxia, tachycardia and elevated lactic acid. 3. Leukocytosis with concerns for developing pneumonia with some exacerbation from recent and current corticosteroid administration. 4. Chronic hypoxia with room air saturations of 89% in a chronic smoker with patient refusing to wear oxygen as directed. 5. Poor medical compliance regarding chronic obstructive pulmonary disease treatment including oxygen and maintenance medications. 6. Nicotine addiction in a chronic smoker encouraged to stop smoking. PLAN: The patient is still encouraged to wear oxygen as directed. She continues on aggressive pulmonary hygiene with a short course of inhaled steroids to include Pulmicort which will stop today and tapering corticosteroids of Solu-Medrol 40 mg q.6h. for an additional 4 doses. Given that she is persistently tachycardic despite aggressive fluid management although her lactic acid is normalized, I did a lactic acid which was elevated and given her risk factors and hypoxia along with the tachycardia, we will go ahead and do a CT of the chest to further rule out any underlying pulmonary embolism. In regards to the persistent tachycardia, I did an EKG which showed sinus tachycardia and the patient is not on any current long-term management for hypertension or tachycardia, but given her symptoms, we will try a 5 mg dose of metoprolol tartrate IV and follow this up with 25 mg b.i.d. with close monitoring. She is continued on DVT prophylaxis. We will anticipate her length of stay to be at least another 1 to 2 days. She is going to need a lot of education in regard to treatment once discharged in regard to her chronic obstructive pulmonary disease followup and management. We will again anticipate discharge hopefully tomorrow or the next day. Until then, we will continue to monitor the patient closely and treat appropriately. #[id number] #[id number] [facility]OSPITALMillie
[2017-09-05] MEDS: AZITHROMYCIN 250 MG TAB PO SCH (15:57)
[2017-09-05] MEDS: METOPROLOL TARTRATE 25 MG TAB PO SCH (17:28)
[2017-09-05] MEDS: methylPREDNISolone SODIUM SUC 40 MG/ML VIAL IV SCH ×2 (17:28→22:43)
[2017-09-05] MEDS: MONTELUKAST 10 MG TAB PO SCH (20:46)
[2017-09-06] MEDS ORDERED: PANTOPRAZOLE SODIUM TAB 40 MG PO ONE (03:39)
[2017-09-06] MEDS: SODIUM CHLORIDE 0.9% (FLUSH) 10 ML SYG IV PRN ×2 (05:13→23:51)
[2017-09-06] MEDS: methylPREDNISolone SODIUM SUC 40 MG/ML VIAL IV SCH ×4 (05:14→23:50)
[2017-09-06] MEDS: PANTOPRAZOLE SODIUM TAB 40 MG PO SCH (06:13)
[2017-09-06] MEDS ORDERED: SODIUM CHL 0.9% 50ML MIN-BAG+ 50 ML IVPB ONE ×2 (08:04→20:22)
[2017-09-06] MEDS ORDERED: cefTRIAXone SODIUM 1 GM VIAL ONE ×2 (08:04→20:23)
[2017-09-06] MEDS: ENOXAPARIN SODIUM 40 MG/0.4 ML SYG SUBCU SCH (08:17)
[2017-09-06] MEDS: METOPROLOL TARTRATE 25 MG TAB PO SCH ×2 (08:17→16:22)
[2017-09-06] MEDS: NICOTINE PATCH 14 MG TD SCH (08:17)
[2017-09-06] MEDS: cefTRIAXone SODIUM 1 GM in SODIUM CHL 0.9% 50ML MIN-BAG+ 50 ML IVPB SCH ×2 (08:17→21:17)
[2017-09-06] MEDS: IPRATROPIUM/ALBUTEROL 3 ML VIAL NEB SCH ×4 (08:43→20:40)
[2017-09-06] MEDS: BUDESONIDE NEBS 0.5 MG/2 ML VIAL NEB SCH (08:44)
[2017-09-06] MEDS ORDERED: methylPREDNISolone SODIUM SUC 40 MG/ML VIAL ONE (15:40)
[2017-09-06] MEDS: AZITHROMYCIN 250 MG TAB PO SCH (16:22)
[2017-09-06] MEDS: guaiFENesin ER TAB 600 MG TAB PO SCH ×2 (16:22→21:17)
--- NOTE | 2017-09-06 18:50 | PN ---
DATE: 09/06/17 SUPERVISING PHYSICIAN: Conner Shi M.D. SUBJECTIVE: The patient is sitting on the side of her bed. She is visibly short of breath. She speaks in short phrases. Becomes more tachypneic with speaking. Complains of shortness of breath, fatigue but is unimproved since the previous day or so. Denies chest pain, nausea, vomiting or diarrhea. OBJECTIVE: VITAL SIGNS:: She is afebrile, heart rate 114, blood pressure 148/76 respiratory rate 20 at rest. It is approximately 24 with exertion. O2 sat is 88% on room air. RESPIRATORY: Expiratory wheezes throughout, scattered rhonchi. She is tachypneic. CARDIAC: Regular to tachycardic rate, regular rhythm. GASTROINTESTINAL: Abdomen is soft, nondistended,non-tender. Bowel sounds are positive. EXTREMITIES: No cyanosis, clubbing or edema. NEUROLOGIC: She is awake, alert and oriented times three. She is tearful at this time. LABORATORY: WBCs are 27.9, hemoglobin 12.8, hematocrit 38.5. Sodium 138, potassium 4.4, chloride 107, carbon dioxide 25, BUN 14, creatinine 0.46, glucose 132, magnesium 1.8. Preliminary sputum cultures show gram-negative rods. Preliminary blood cultures show no growth after 24 hours. All other labs and films have been reviewed via the EMR. ASSESSMENT: 1. Acute exacerbation of chronic obstructive pulmonary disease having failed to respond to outpatient treatment plan with Augmentin and tapering steroids with concerns for early pneumonia, community acquired. 2. Sepsis secondary to #1, questionable community acquired pneumonia with the patient having hypoxia, tachycardia and elevated lactic acid. 3. Leukocytosis with concerns for developing pneumonia with some exacerbation from recent and current corticosteroid administration. 4. Chronic hypoxia with room air saturations of 89% in a chronic smoker with patient refusing to wear oxygen as directed. 5. Poor medical compliance regarding chronic obstructive pulmonary disease treatment including oxygen and maintenance medications. 6. Nicotine addiction in a chronic smoker encouraged to stop smoking. PLAN: We will continue present supportive care. I have rechecked her lab for in the morning. Her steroids have been decreased and she will start on p.o. steroids tomorrow. She is presently on Rocephin and azithromycin. I will continue to monitor her cultures. She will need pulmonary rehab on discharge as well as a pulmonary consultation. She was put on metoprolol 25 mg b.i.d. yesterday and her heart rate has improved. Blood pressure is still slightly elevated. We may need to go up on her metoprolol tomorrow if there is not more improvement in her heart rate and blood pressure. The patient and I had a long discussion about her COPD and smoking cessation. She has been encouraged to ambulate frequently and to keep her oxygen saturations between 88 and 92%, and she is also encouraged to wear her oxygen when she ambulates. We will continue with good pulmonary hygiene. I have added Mucinex. We will continue to monitor the patient closely and followup as needed. Dr. Shi is the collaborating physician available for consultation. #[id number] [facility]
[2017-09-06] MEDS: MONTELUKAST 10 MG TAB PO SCH (21:16)
[2017-09-07] MEDS: PANTOPRAZOLE SODIUM TAB 40 MG PO SCH (06:40)
[2017-09-07] MEDS ORDERED: SODIUM CHL 0.9% 50ML MIN-BAG+ 50 ML IVPB ONE ×2 (08:01→20:10)
[2017-09-07] MEDS ORDERED: cefTRIAXone SODIUM 1 GM VIAL ONE ×2 (08:02→20:11)
[2017-09-07] MEDS: METOPROLOL TARTRATE 25 MG TAB PO SCH ×2 (08:20→16:46)
[2017-09-07] MEDS: ENOXAPARIN SODIUM 40 MG/0.4 ML SYG SUBCU SCH (08:21)
[2017-09-07] MEDS: guaiFENesin ER TAB 600 MG TAB PO SCH ×2 (08:21→20:50)
[2017-09-07] MEDS: cefTRIAXone SODIUM 1 GM in SODIUM CHL 0.9% 50ML MIN-BAG+ 50 ML IVPB SCH ×2 (08:21→20:49)
[2017-09-07] MEDS: predniSONE 20 MG TAB PO SCH (08:21)
[2017-09-07] MEDS: NICOTINE PATCH 14 MG TD SCH (08:21)
[2017-09-07] MEDS: SODIUM CHLORIDE 0.9% (FLUSH) 10 ML SYG IV SCH ×2 (08:22→20:50)
[2017-09-07] MEDS: IPRATROPIUM/ALBUTEROL 3 ML VIAL NEB SCH ×4 (08:50→21:40)
[2017-09-07] MEDS: Wellbutrin XL 150 MG TAB PO SCH (09:50)
[2017-09-07] MEDS: AZITHROMYCIN 250 MG TAB PO SCH (15:50)
[2017-09-07] MEDS: IV SET AND CAP CHANGE INJ INJ SCH (15:50)
[2017-09-07] MEDS: MONTELUKAST 10 MG TAB PO SCH (20:50)
--- NOTE | 2017-09-07 21:36 | PN ---
DATE: 09/07/17 SUPERVISING PHYSICIAN: Conner Shi M.D. SUBJECTIVE: The patient is sitting on the side of her bed. She is very tearful , very depressed and worried about going home. Continues to have complaints of shortness of breath, coughing, but denies any wheezing, chest pain, nausea, vomiting or diarrhea. We discussed at length smoking cessation as well as treating her depression and keeping busy after she is discharged to keep from smoking. OBJECTIVE: VITAL SIGNS: She is afebrile, heart rate 88, blood pressure 136/78, respiratory rate 20, O2 sat 92% on room air. RESPIRATORY: Some scattered rhonchi throughout all lung artis with a few expiratory wheezes in the left upper lobe,somewhat diminished at the bases. CARDIAC: Regular rate and rhythm. NEUROLOGIC: She is awake, alert and oriented times three but very tearful and depressed as well as showing some anxiety. LABORATORY: WBCs have improved to 21,100 with hemoglobin 12.9 and hematocrit 38.7, neutrophils 89.4. Electrolytes are within normal limits with BUN 18, creatinine 0.52. Magnesium 2. ALT 110. Serum total protein 6.3, albumin 3.1. Final sputum culture shows Klebsiella pneumoniae sensitive to Rocephin and she is presently being treated with Rocephin. Preliminary blood cultures show no growth after 3 days. All other labs and films have been reviewed via the EMR. ASSESSMENT: 1. Acute exacerbation of chronic obstructive pulmonary disease having failed to respond to outpatient treatment plan with Augmentin. Her steroids have been tapered to p.o. She is presently on Rocephin and azithromycin. There were concerns for early pneumonia, community acquired. 2. Sepsis secondary to #1, questionable community acquired pneumonia with the patient having hypoxia, tachycardia and elevated lactic acid. 3. Leukocytosis with concerns for developing pneumonia, while still elevated is slowly improving. 4. Chronic hypoxia with room air saturations of 89% in a chronic smoker. The patient refuses to wear oxygen as directed. 5. Poor medical compliance regarding chronic obstructive pulmonary disease treatment including oxygen and maintenance medications. 6. Nicotine addiction in a chronic smoker that is encouraged to stop smoking. 7. Depression and anxiety. PLAN: We will continue present supportive care. I will continue with the Rocephin and azithromycin. Sputum cultures show sensitivity to Rocephin. She has had a PFT done today and Pulmonary Rehab has been consulted. Scheduling will arrange for her appointment. I started Trelegy and there are samples in the patient's medication drawer. She will continue those in the outpatient setting. I have also started her on Wellbutrin which may help with the depression as well as her attempt to quit smoking. Will continue with p.o. steroids and she will be discharged on a steroid taper as well as some p.o. antibiotics. I will repeat her lab in the morning. Hopefully she can be discharged tomorrow or the next day. We will continue to monitor the patient closely and follow as needed. Dr. Shi is the collaborating physician available for consultation. #[id number] [facility]ITALMillie
[2017-09-07] MEDS: SODIUM CHLORIDE 0.9% (FLUSH) 10 ML SYG IV PRN (22:31)
[2017-09-08] MEDS: PANTOPRAZOLE SODIUM TAB 40 MG PO SCH (06:16)
[2017-09-08] MEDS ORDERED: NON-FORMULARY MEDICATION 1 EA MIS INH SCH (08:00)
[2017-09-08] MEDS: IPRATROPIUM/ALBUTEROL 3 ML VIAL NEB SCH ×2 (08:45→13:30)
[2017-09-08 09:02] VITALS: BP 145/92; TEMP 97.9; O2SAT 95
[2017-09-08] MEDS ORDERED: SODIUM CHL 0.9% 50ML MIN-BAG+ 50 ML IVPB ONE (09:33)
[2017-09-08] MEDS ORDERED: cefTRIAXone SODIUM 1 GM VIAL ONE (09:33)
[2017-09-08] MEDS: predniSONE 20 MG TAB PO SCH (09:49)
[2017-09-08] MEDS: METOPROLOL TARTRATE 25 MG TAB PO SCH (09:49)
[2017-09-08] MEDS: ENOXAPARIN SODIUM 40 MG/0.4 ML SYG SUBCU SCH (09:49)
[2017-09-08] MEDS: Wellbutrin XL 150 MG TAB PO SCH (09:49)
[2017-09-08] MEDS: guaiFENesin ER TAB 600 MG TAB PO SCH (09:49)
[2017-09-08] MEDS: NICOTINE PATCH 14 MG TD SCH (09:49)
[2017-09-08] MEDS: cefTRIAXone SODIUM 1 GM in SODIUM CHL 0.9% 50ML MIN-BAG+ 50 ML IVPB SCH (09:50)
[2017-09-08] MEDS: SODIUM CHLORIDE 0.9% (FLUSH) 10 ML SYG IV SCH (09:50)
[2017-09-08] MEDS ORDERED: ALPRAZolam 0.25 MG TAB PO PRN (10:38)
[2017-09-08] MEDS ORDERED: PNEUMOCOCCAL VACCINE 0.5 ML INJ IM ONE (13:06)
[2017-09-08] MEDS: AZITHROMYCIN 250 MG TAB PO SCH (13:30)
--- NOTE | 2017-09-13 08:23 | DS ---
SUPERVISING PHYSICIAN: Conner Shi MD DISCHARGE DIAGNOSES: 1. Acute exacerbation of chronic obstructive pulmonary disease having failed to respond to outpatient treatment plan with Augmentin. She was given steroids as well as Rocephin and azithromycin. There were also concerns for early pneumonia, community acquired. 2. Sepsis secondary to #1, questionable community acquired pneumonia with the patient having hypoxia, tachycardia and elevated lactic acid. 3. Leukocytosis with concerns for developing community acquired pneumonia, while still elevated it is slowly improving and may be elevated due to aggressive steroid therapy. 4. Chronic hypoxia with room air saturations in the upper 70s. She is a chronic smoker. The patient refuses to wear oxygen as directed most of time, although her compliance has improved. 5. Poor medical compliance regarding chronic obstructive pulmonary disease treatment including oxygen, maintenance medications and tobacco abuse. 6. Nicotine addiction in a chronic smoker that is encouraged to stop smoking. 7. Depression and anxiety. HISTORY OF PRESENT ILLNESS: This is a 57 year-old female patient who presented to the Emergency Room on the date of admission complaining of shortness of breath that had been worsening over the prior three days. She has been treated for chronic obstructive pulmonary disease multiple times in the past. She is also oxygen dependent but refuses to wear her oxygen most of the time. She also continues to smoke. She had been in the walk-in clinic in [facility] in the prior two weeks and treated for an upper respiratory infection that included Augmentin and tapering steroids. She has finished the steroids but had not completed her Augmentin. She has worsening shortness of breath and increased purulent sputum and due to her symptoms she presented to the Emergency Room. She denied any chest pain. Her lab studies showed a leukocytosis of 15,700 with a significant left shift. Her vital signs showed she was hypoxic on room air with saturation of 87% at rest. She was afebrile.but significantly tachypneic at 28 breaths per minute even after a breathing treatment. Chest x-ray showed chronic obstructive pulmonary disease but no lobular consolidations. Given her degree of desaturation and failing to respond to outpatient therapy and previous exacerbations of chronic obstructive pulmonary disease, the patient was admitted to the hospital. HOSPITAL COURSE: The patient was given IV steroids as well as Rocephin and azithromycin. She was also given aggressive pulmonary hygiene that included Duoneb breathing treatments. Her blood pressure was elevated up into the 150s and 160s and she was started on metoprolol. It was difficult to obtain her actual list of home medication as she did not take any of her home medications including the maintenance medicine for chronic obstructive pulmonary disease. She had multiple counseling sessions to stop smoking cigarettes. She was also given extensive chronic obstructive pulmonary disease teaching that included oxygen therapy. She does have a nebulizer at home but seldom uses it. The patient was also severely depressed with multiple episodes of crying. She was started the patient on Wellbutrin for her multiple episodes of crying. She was also very anxious about being discharged home as there are many smokers in her home and she was worried about being able to continue to stop smoking. Again, extensive education was given to her about smoking cessation. She was started on Wellbutrin for both the anxiety and depression as well as an attempt to help her with her smoking cessation. At this point, her vital signs have stabilized with her 02 saturations in the low 90s. Her WBCs had been as high as 27,900 but today they are 19,500 and may be elevated due to her aggressive steroid treatment. Her chemistries are basically within normal limits. She did have a final sputum culture that was positive for Klebsiella pneumonia. It was sensitive to Ceftriaxone and multiple cephalosporins. She will be discharged home in stable condition. DISCHARGE PLAN: The patient will be discharged home in stable condition and to followup with her primary care physician, Dr. Bill Avendaño, on 09/15/17 at 10: 00 AM. She also has been scheduled for pulmonary rehab and PFTs have been done during this hospital stay. She may benefit from a slitter service and setter referral. She is to wear her oxygen as previously ordered as well as continue nebulizer treatments four times daily and as needed. She has not used any of her home chronic obstructive pulmonary disease maintenance medicine was so she was given samples of Trilogy. She can discuss with Dr. Avendaño her chronic obstructive pulmonary disease maintenance medications at her hospital followup. Again, she was strongly encouraged to stop smoking and to continue her Wellbutrin. She was also given a prescription for guaifenesin. Her blood pressure has stabilized to the 140s over 80s and 90s. We will continue on her metoprolol. She is to call Dr. Avendaño office or return to the hospital for any further problems or complications. DISCHARGE MEDICATIONS: 1. Albuterol. 2. Alprazolam. 3. Wellbutrin. 4. Trilogy Ellipta. 5. Guaifenesin. 6. Metoprolol. 7. Montelukast. 8. Prednisone taper. Dr. Shi is the collaborating physician available for consultation. #[id number] [facility]ITAL[facility]ie
== END 2017-09-08 13:54 | disposition home or self-care (01) | DRG 871 ==
LOC: ER 09:07 → MS 13:55 → OBSVTOIN 13:55
PROVIDERS: ADMIT Nurse Practitioner Family; ATTEND Nurse Practitioner Acute Care
DX: A41.9 Sepsis, unspecified organism (principal); J18.9 Pneumonia, unspecified organism; J44.1 Chronic obstructive pulmonary disease with (acute) exacerbation; J44.0 Chronic obstructive pulmonary disease with (acute) lower respiratory infection; F17.210 Nicotine dependence, cigarettes, uncomplicated; R09.02 Hypoxemia; F32.9 Major depressive disorder, single episode, unspecified; F41.9 Anxiety disorder, unspecified; Z91.19 Patient's noncompliance with other medical treatment and regimen

== ENCOUNTER → 2017-10-20 | Outpatient (CLI) | payer BC | LOC: GMAJS 12:15 | PROVIDERS: ATTEND Physician Assistant | DX: M54.5 Low back pain (principal) ==

== ENCOUNTER 2017-11-22 13:35 | Inpatient (IN) | payer BC ==
--- NOTE | 2017-11-22 13:57 | HP ---
SUPERVISING PHYSICIAN: Bill Avendaño MD CHIEF COMPLAINT: Shortness of breath. HISTORY OF PRESENT ILLNESS: Ms. Woods is a 57 year-old female patient with a history of chronic obstructive pulmonary disease and recent hospitalizations for exacerbations. She presented to the clinic to see Dr. Avendaño today and was noted to be significantly short of breath. She noted she was having some productive cough with yellow-greenish sputum, wheezing. Her vital signs in the clinic showed she was significantly hypoxic with her room air SP02 at 87%. She was slightly tachycardiac at a rate of 110 beats-per- minute. Given her history of recent cigarette smoking along with chronic obstructive pulmonary disease and findings of low 02 saturation, Dr. Avendaño requested the patient be directly admitted for exacerbation and further workup in regards to her shortness of breath. Her laboratory studies showed she had a leukocytosis of 14,000 with a left shift. A CT of the chest was completed after her D dimer cam back elevated at 767. The CT of the chest per radiology interpretation showed no large central pulmonary embolus identified but there was a question of a small emboli in the peripheral branches of the left lower lobe. There was also note of a right upper lobe 5 mm nodule that is unchanged from previous exams. The patient is now going to be started on pulmonary embolism protocol and treatment of underlying chronic obstructive pulmonary disease asthma exacerbation with concerns for developing community acquired pneumonia as well. She is admitted in stable condition. PAST MEDICAL HISTORY: 1. Chronic obstructive pulmonary disease with poor control. 2, Gastroesophageal reflux disease. 3. Depression. 4. Hypertension. PAST SURGICAL HISTORY: 1. Hysterectomy. 2. Tubal ligation. 3. Cholecystectomy. 4. Right foot surgery in 2017. CURRENT MEDICATIONS: 1. Singulair 10 mg at bedtime. 2. Lopressor 25 mg b.i.d. 3. Trelegy Ellipta 100-62.5-25 mcg inhaled one daily. 4. Celexa 20 mg every other day. 5. Proventil Nebs 2.5 mg every 4 hours has needed. FAMILY HISTORY: Unremarkable and noncontributory. SOCIAL HISTORY: The patient resides in [place]. She is retired. 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 She is and lives with her ex-. She does smoke 1 pack a day for well over 30 years but quit September 06, 2017 but continues to smoke 1 or 2 cigarettes periodically on a daily basis. She denies any alcohol or illicit drug use. REVIEW OF SYSTEMS: CONSTITUTIONAL: Negative for fatigue or fever. . HEENT: Positive for nasal congestion. Denies any ear aches, sore throat. RESPIRATORY: Positive for productive cough, exertional dyspnea, orthopnea or wheezing. Denies chest pain. . CARDIOVASCULAR: Denies any chest pains, palpitations or syncopal episodes or pedal edema. GASTROINTESTINAL: Denies any abdominal pains, constipation, diarrhea or nausea or vomiting. GENITOURINARY: Denies any dysuria, hematuria or other urinary symptoms. NEUROLOGIC: Denies any ataxia, seizures or other neurological deficits. PHYSICAL EXAMINATION: VITAL SIGNS: In the clinic showed 02 saturation of 87% on room air. Blood pressure 120/75 with pulse of 110. On admission to the medical/surgical floor she was afebrile with temperature of 97.7, pulse 107 with blood pressure of 98/ 64, respirations 24, saturation 87% on room air, improving to 95% with nasal cannula and after breathing treatments. Admission weight 79 kg. GENERAL: The patient is well-developed, well-nourished, appears to be in no acute distress on admission to the medical/surgical floor. She is somewhat anxious. HEENT: Tympanic membranes are clear bilateral. Oropharynx is pink. Mucous membranes are moist with no notable erythema, no lesions. NECK: Supple, non-tender with full range of motion. No jugular venous distention. CHEST: Decreased breath sounds throughout. No obvious rales or rhonchi. She does have some mild coarse breath sounds and a very faint expiratory wheeze with a mildly prolonged expiratory phase. CARDIOVASCULAR: Regular rate and rhythm with rate of 107 on the monitor with no murmurs, rubs, or gallops appreciated. EXTREMITIES: No cyanosis, clubbing, or edema. No calf pain. NEUROLOGIC: She is alert and oriented x 3. LABORATORY: White count showed a leukocytosis of 14,000 with a hemoglobin of 14.1, hematocrit 40.9, platelet count 276,000. Differential did show a left shift. Chemistries showed normal electrolytes with BUN of 15, creatinine 0.79, calcium 9.1, magnesium 1.8. AST, ALT, alkaline phosphatase elevated with AST of 113, alkaline phosphatase 130, ALT 116. Urinalysis showed positive nitrites with trace leukoesterase with microscopic showing 3 to 5 WBCs, 0 to 1 RBCs, 5 to 10 epithelials and 3+ bacteria. Coagulation studies in the clinic prior to admission showed an elevated D dimer at 767. RADIOLOGY: She did have an x-ray in the clinic and that image was not available at time of admission but per Dr. Avendaño, there was no notable consolidation. She then had a CT of the chest secondary to elevated D dimer and per radiology interpretation there was no note of any large central pulmonary embolism, the pulmonary arterial was suboptimal but there was a question of small emboli in the peripheral branches of the left lower lobe as well as the right upper lobe a 5 mm nodule that is unchanged from previous exam. ASSESSMENT: 1. Acute exacerbation of chronic obstructive pulmonary disease with component of asthma and concerns for developing community acquired pneumonia requiring aggressive bronchial hygiene management with the patient being hypoxic and showing a significant leukocytosis prior to admission.. 2. Leukocytosis with concerns for early pneumonia secondary to #1. 3. Concerns for a small pulmonary embolism in the left lower lobe along with a 5 mm nodule in the right upper lobe requiring initiation of PE protocol with 1 mg per kg of the Lovenox also contributing to the hypoxic state. 4. Hypoxia as noted with room air saturations of 87 to 89% in a chronic smoker with chronic obstructive pulmonary disease and exacerbation. 5. Poor medical compliance regarding chronic obstructive pulmonary disease treatment. 6. Hypertension. 7. History of gastroesophageal reflux disease. 8. History of depression on Celexa. . PLAN: The patient is going to be directly admitted to the medical/surgical floor for continuation of treatment and evaluation of both exacerbation of chronic obstructive pulmonary disease with asthma along with concerns for pulmonary embolism. I have started her on antibiotics for concerns for pneumonia. For the PE, I started her on Lovenox 1 mg per kg so she will be on 80 mg every 12 hours. Started her on some fluids with half normal saline with 20 of potassium at 80 an hour. Go ahead and given that in that she has significant amount of wheezing, started on some Solu-Medrol initially 125 mg to followup with 60 mg every 6 hours for at least three doses. She is on azithromycin and Rocephin for antibiotic coverage along with aggressive pulmonary hygiene. She is on Protonix for gastric protection. We will resume her home medications as appropriate once updated and verified in electronic medical records. She will be on oxygen as needed to maintain her 02 saturation between 92 and 94%. Will continue with treatment with estimation of length of stay to be at 2 to 3 days. Per recommendations of radiologist, considerations for possible repeat of CT of the chest in 48 hours to further characterize the previous mentioned pulmonary embolism on current study. In regards to discharge planning, I will discuss further treatment as an outpatient treatment in regards to the pulmonary embolism with Dr. Avendaño, her primary care physician , as far as long-term anticoagulant therapy needed and choice of regimen. Until patient is stable and shown to be clinically able to be discharged and followed with outpatient treatment plan, will continue to follow and treat appropriately. #[id number] [facility]
[2017-11-22] MEDS ORDERED: SODIUM CHLORIDE 0.9% (FLUSH) 10 ML SYG IV PRN (14:09)
[2017-11-22] MEDS ORDERED: ALBUTEROL SULFATE 2.5 MG/3 ML VIAL NEB PRN (14:09)
[2017-11-22] MEDS ORDERED: ACETAMINOPHEN 325 MG TAB PO PRN (14:09)
[2017-11-22] MEDS ORDERED: IPRATROPIUM/ALBUTEROL 3 ML VIAL NEB ONE (14:16)
[2017-11-22] MEDS ORDERED: IV SET AND CAP CHANGE INJ INJ SCH (14:30)
[2017-11-22] MEDS ORDERED: cefTRIAXone SODIUM 1 GM VIAL ONE (14:46)
[2017-11-22] MEDS ORDERED: SODIUM CHL 0.9% 50ML MIN-BAG+ 50 ML IVPB ONE (14:46)
[2017-11-22] MEDS: AZITHROMYCIN 250 MG TAB PO SCH (14:57)
[2017-11-22] MEDS: cefTRIAXone SODIUM 1 GM in SODIUM CHL 0.9% 50ML MIN-BAG+ 50 ML IVPB SCH (14:58)
[2017-11-22] MEDS ORDERED: methylPREDNISolone SODIUM SUC 125 MG/2 ML VIAL IV ONE ×2 (15:06→21:00)
[2017-11-22] MEDS: IPRATROPIUM/ALBUTEROL 3 ML VIAL INH SCH ×2 (15:07→20:37)
[2017-11-22] MEDS: methylPREDNISolone SODIUM SUC 125 MG/2 ML VIAL IV SCH ×2 (17:27→23:45)
[2017-11-22] MEDS: KCL 20MEQ/0.45% NS 1,000 ML IVS PRN (17:27)
[2017-11-22] MEDS: METOPROLOL TARTRATE 25 MG TAB PO SCH (17:46)
--- NOTE | 2017-11-22 18:30 | CT ---
EXAM DESCRIPTION: CTA Chest CLINICAL HISTORY: 57 years, Female, elevated D-Dimer, Hypoxia; tachycardia COMPARISON: None TECHNIQUE: CT pulmonary angiography is performed with thin-section multi detector technique during rapid bolus administration of usual adult dose of nonionic iodinated contrast IV. Multiplanar reformatted images are reviewed along with source images and maximum intensity projection reformatted images were also evaluated. FINDINGS: There is suboptimal enhancement of the pulmonary arteries. No large central pulmonary embolus is seen. Questionable low density foci within left lower lobe peripheral pulmonary arteries suggests very small peripheral emboli in the left lower lobe. Subtle defects are also seen here on the MIP images bilateral obliques. Normal enhancement of cardiac chambers. Prominent pulmonary arteries may indicate pulmonary hypertension. Heart is normal in size. Septal thickening is seen in the upper lobes with mild subpleural microatelectasis or edema in the right lower lobe more than left. No broad area of consolidation to suggest pneumonia. Early enhancement of the aorta is negative for aneurysm or dissection. Lung window images are negative for infiltrate. Small nodule in the right upper lobe measures 5 mm. Compared to previous study in August and September 05, 2017, right upper lobe nodule is unchanged. Similar septal thickening was seen in the apices with similar subpleural infiltrate in the right lower lobe suggesting possible fibrosis. Hyperexpanded are hyper aerated left lower lobe and left upper lobe could be related to Swyer-Robin or emphysema. The latter is favored. In the upper abdomen, upper abdominal viscera are unremarkable except for diffuse hepatic steatosis and surgically absent gallbladder. Hiatal hernia seen behind the heart. No chest wall mass or rib fracture. No axillary or lower cervical adenopathy. Coronal and sagittal reformatted MIP images confirm normal pulmonary arterial enhancement. Oblique MIP images show suboptimal pulmonary arterial enhancement but no definite emboli. Streak artifacts are prominent. Comparison is made to the previous study. Pulmonary infiltrates are similar. No emboli were seen on the previous study. One might consider waiting 48 hours and then repeating the CT pulmonary angiogram. Conventional pulmonary angiography with subselective catheterization of left lower lobe pulmonary arterial branches might also be considered. Ventilation perfusion lung scan is unlikely to be helpful in this patient with extensive emphysema. IMPRESSION: No large central pulmonary embolus is identified. Pulmonary arterial enhancement is suboptimal. Question small emboli in the peripheral branches of the left lower lobe. Right upper lobe 5 mm nodule unchanged. Follow-up as per recommendations below. 2017 Fleischner Society Recommendations for Single Solid Lung Nodule Follow-Up based on size (average of long- and short-axis diameters) <6 mm Low-Risk Patient: No routine follow-up <6 mm High-Risk Patient: Optional CT at 12 months This exam was performed according to our departmental dose-optimization program, which includes automated exposure control, adjustment of the mA and/or kV according to patient size and/or use of iterative reconstruction technique. Total DLP equals 652.27 mGycm. Electronically signed by: Mitchel Valencia MD 11/22/2017 6:29 PM CDT
--- NOTE | 2017-11-22 19:31 | PCM.CORE ---
Physician DVT/VTE - Nurse DVT Assessment & Total Each Risk Factor Represents 3 Points: Hx of DVT/PE Each Risk Factor Represents 1 Point: Age 41-60, Hx of smoking past year Each Risk Factor is 1 Point: Obesity (BMI >25), Serious Lung disease (pnemonia < 1month, COPD, emphysema,etc) DVT Assessment Score: 7 - 5 or more Very High Risk Treatments: Early Ambulation *, Sequential Compression Device Pharmacological: Enoxaparin 40mg SQ Daily
[2017-11-22] MEDS ORDERED: ENOXAPARIN SODIUM 80 MG/0.8 ML SYG SUBCU ONE (19:42)
[2017-11-22] MEDS: ENOXAPARIN SODIUM 80 MG/0.8 ML SYG SUBCU SCH (19:54)
--- NOTE | 2017-11-22 20:03 | US ---
EXAM DESCRIPTION: Venous,Lower Extremity LT (accession [id number]), Venous,Lower Extremity RT (accession [id number]) CLINICAL HISTORY: PE COMPARISON: None Available TECHNIQUE: Duplex images of the common femoral, greater saphenous, superficial femoral, popliteal, peroneal, and posterior tibial veins of both lower extremities were submitted FINDINGS: All of the above-mentioned venous structures demonstrate normal spontaneous flow with respiratory phasicity and were fully compressible. IMPRESSION: No sonographic evidence of acute DVT within the lower extremities. Electronically signed by: Servando Lopez MD 11/22/2017 8:02 PM CDT
--- NOTE | 2017-11-22 20:03 | US ---
EXAM DESCRIPTION: Venous,Lower Extremity LT (accession [id number]), Venous,Lower Extremity RT (accession [id number]) CLINICAL HISTORY: PE COMPARISON: None Available TECHNIQUE: Duplex images of the common femoral, greater saphenous, superficial femoral, popliteal, peroneal, and posterior tibial veins of both lower extremities were submitted FINDINGS: All of the above-mentioned venous structures demonstrate normal spontaneous flow with respiratory phasicity and were fully compressible. IMPRESSION: No sonographic evidence of acute DVT within the lower extremities. Electronically signed by: Servando Lopez MD 11/22/2017 8:02 PM CDT
[2017-11-22] MEDS: MONTELUKAST 10 MG TAB PO SCH (20:43)
[2017-11-23] MEDS: methylPREDNISolone SODIUM SUC 125 MG/2 ML VIAL IV SCH (06:11)
[2017-11-23] MEDS: PANTOPRAZOLE SODIUM TAB 40 MG PO SCH (06:11)
[2017-11-23] MEDS: KCL 20MEQ/0.45% NS 1,000 ML IVS PRN ×2 (06:15→19:59)
[2017-11-23] MEDS: METOPROLOL TARTRATE 25 MG TAB PO SCH ×2 (07:09→16:55)
[2017-11-23] MEDS: ENOXAPARIN SODIUM 80 MG/0.8 ML SYG SUBCU SCH ×2 (07:10→19:54)
[2017-11-23] MEDS ORDERED: NON-FORMULARY MEDICATION 1 EA MIS (Fluticasone-Umeclidinium-Vilan [Trelegy Ellipta 100-62. INH SCH (08:00)
--- NOTE | 2017-11-23 08:01 | RAD ---
EXAM: Two view chest. INDICATION: Chest pain. COMPARISON: Chest x-ray: 09/05/2017. FINDINGS: Cardiac silhouette: Unremarkable. Jen: Unremarkable. Lobar consolidation: None. Pleural effusion: None. Pneumothorax: None. Other: The lungs are emphysematous. Bones: Unremarkable. Other: None. IMPRESSION: Emphysematous appearing lungs Electronically signed by: Zoran Gan MD 11/23/2017 8:00 AM CDT Workstation: [id number]
[2017-11-23] MEDS ORDERED: IPRATROPIUM/ALBUTEROL 3 ML VIAL NEB ONE (08:27)
[2017-11-23] MEDS: IPRATROPIUM/ALBUTEROL 3 ML VIAL INH SCH (08:35)
[2017-11-23] MEDS: IPRATROPIUM/ALBUTEROL 3 ML VIAL NEB SCH ×3 (12:35→20:19)
[2017-11-23] MEDS ORDERED: SODIUM CHL 0.9% 50ML MIN-BAG+ 50 ML IVPB ONE (14:15)
[2017-11-23] MEDS ORDERED: cefTRIAXone SODIUM 1 GM VIAL ONE (14:15)
[2017-11-23] MEDS: AZITHROMYCIN 250 MG TAB PO SCH (14:18)
[2017-11-23] MEDS: cefTRIAXone SODIUM 1 GM in SODIUM CHL 0.9% 50ML MIN-BAG+ 50 ML IVPB SCH (14:18)
--- NOTE | 2017-11-23 17:26 | PN ---
SUPERVISING PHYSICIAN: Bill Avendaño MD DATE: 11/23/17 SUBJECTIVE: The patient continues to be fairly noncompliant with wearing her oxygen and showing mid 80s to high 80s on her oxygenation levels. I have again explained to her the importance of wearing oxygen and she understands this. Again discussed at length the findings of the CT regards to pulmonary embolism and treatment. The patient reports that her shortness of breath is much less today and she has had no chest pain. She remains afebrile. OBJECTIVE: Vital Signs: Temperature 97.8, pulse 96, blood pressure 110/65, respirations 20, saturation 93% on room air. I&O show positive balance of 200 with 1800 in and 1600 out. Weight 80.37 kg. CHEST: Lungs are fairly clear today, just diminished bilaterally towards the bases. No rhonchi, rales, or wheezes noted. HEART regular rate and rhythm but continues to be tachycardiac at 90s to 100. ABDOMEN is soft, obese, non-tender, positive bowel sounds. EXTREMITIES: No cyanosis, clubbing, or edema. NEUROLOGIC: She is alert and oriented x 3. LABORATORY: White count down to 13,600, hemoglobin 13.6, hematocrit 39.7, platelet count 270,000, differential does continue to show a left shift. Chemistries show normal electrolytes. Potassium 4.4 with BUN of 9, creatinine 0.49, calcium 8.8. Liver functions are showing some slight improvement with AST down to 66, ALT at 110. Alkaline phosphatase 122. Urinalysis yesterday showed positive nitrite, trace leukoesterase with 3 to 5 WBC, 5 to 10 epithelials and 3 + bacteria. MICROBIOLOGY: Blood cultures remain negative at 24 hours. Urine culture pending. Sputum culture pending. RADIOLOGY: Repeat chest x-ray today per radiology interpretation shows emphysematous appearing lung. ASSESSMENT: 1. Acute exacerbation of chronic obstructive pulmonary disease with component of asthma and concerns for developing community acquired pneumonia requiring continued aggressive bronchial hygiene and supplemental oxygen and continued antibiotics.. 2. Leukocytosis with concerns for early pneumonia persistent secondary to # 1.and probably exacerbated by recent steroid administration. 3. Questionable small pulmonary embolism in the left lower lobe along with a 5 mm nodule in the right upper lobe seen on CT with initiation of PE protocol with Lovenox and continued hypoxic state requiring supplemental oxygen. 4. Hypoxia continued with slight improvement in a chronic smoker and exacerbated by #1 and #3. . 5. Poor medical compliance regarding chronic obstructive pulmonary disease treatment. 6. Hypertension stable. 7. History of gastroesophageal reflux disease. 8. History of depression on Celexa. 9. Elevated liver enzymes, uncertain etiology possibly secondary to acute stress response and medical illness, showing some improvement with fluids and initiation of treatment for chronic obstructive pulmonary disease exacerbation. . PLAN: Will continue with Lovenox 1 mg per kg for treatment of underlying PE and discuss in the morning with Dr. Avendaño the findings on recent CT with consideration of possibly repeating further rule out a confirmed PE. If we continue with PE treatment, the decision will need to be decided ultimately of what anticoagulation protocol she will be started on, whether it be Eliquis, Xarelto or ultimately Coumadin. Will continue antibiotics, again for concerns for community acquired pneumonia. I stopped her steroids as she has shown good improvement and will continue to monitor response. She remains on Protonix for gastric protection. Will repeat labs in the morning as well as chest x-ray and continue with aggressive pulmonary hygiene. Until clinically stable and able to be discharged will continue to monitor and treat appropriately. #[id number] [facility]
[2017-11-23] MEDS: MONTELUKAST 10 MG TAB PO SCH (21:17)
[2017-11-24] MEDS: PANTOPRAZOLE SODIUM TAB 40 MG PO SCH (06:06)
[2017-11-24] MEDS: METOPROLOL TARTRATE 25 MG TAB PO SCH ×2 (07:59→17:27)
[2017-11-24] MEDS: ENOXAPARIN SODIUM 80 MG/0.8 ML SYG SUBCU SCH ×2 (07:59→20:38)
[2017-11-24] MEDS: IPRATROPIUM/ALBUTEROL 3 ML VIAL NEB SCH ×4 (08:31→19:50)
[2017-11-24] MEDS: NON-FORMULARY MEDICATION 1 EA MIS (Fluticasone-Umeclidinium-Vilan [Trelegy Ellipta 100-62. INH SCH (08:32)
[2017-11-24] MEDS ORDERED: CITALOPRAM HBR 20 MG TAB PO SCH (09:00)
[2017-11-24] MEDS: KCL 20MEQ/0.45% NS 1,000 ML IVS PRN (09:18)
--- NOTE | 2017-11-24 10:01 | RAD ---
EXAM DESCRIPTION: Chest,2 Views CLINICAL HISTORY: 57 years Female, asthma exacerbation - leukocytosis COMPARISON: 11/23/2017 IMPRESSION: Heart size is within normal limits. There is borderline central pulmonary vascular congestion. Coarsened bilateral interstitial markings, right slightly greater than left. The findings may relate to chronic interstitial scarring, but a superimposed atypical infectious/inflammatory process or interstitial edema may have a similar appearance. No confluent airspace consolidation, large pleural effusion, or pneumothorax. Age-indeterminate lower thoracic compression fracture again demonstrated. Electronically signed by: Dex Salamanca MD 11/24/2017 10:00 AM CDT
--- NOTE | 2017-11-24 11:49 | CT ---
EXAM DESCRIPTION: CTA Chest CLINICAL HISTORY: Questionable PE ; Increasing Leukocytosis ? PNA . Chest pain and shortness of breath. Leukocytosis. COMPARISON: Chest radiographs earlier same day. CTA chest 11/22/2017 TECHNIQUE: Multiple angiographic phase axial images of the chest following intravenous contrast. Multiplanar reconstructions were provided. MIPS were generated and reviewed as well. This exam was performed according to our departmental dose-optimization program, which includes automated exposure control, adjustment of the mA and/or kV according to patient size and/or use of iterative reconstruction technique. FINDINGS: Lungs: Moderate emphysema. Coarsened interstitial markings in the lung bases, right more pronounced than left, with areas of fibrosis/scarring. No acute confluent airspace consolidation or pleural effusion. Mediastinum: There are no filling defects in the pulmonary arteries through the proximal segmental branches. Respiratory motion and mixing beyond this level limits evaluation. Moderate-sized hiatal hernia. The heart is normal in size. The thoracic aorta is normal in caliber. Coronary artery atherosclerosis. The trachea is unremarkable. Lymph nodes: There are no pathologically enlarged lymph nodes by CT size criteria. Chest wall and lower neck: No significant finding. Bones: There is no destructive osseous lesion Upper abdomen: Cholecystectomy clips. Mild atherosclerosis in the upper abdominal aorta. Partially imaged hypodense left renal lesion. IMPRESSION: 1. Negative for central pulmonary embolism. Evaluation beyond the proximal segmental branches is limited due to technical factors as described above. No acute CTA chest findings. 2. Emphysema and fibrosis. 3. Hiatal hernia. 4. Other chronic findings as above. Electronically signed by: Dex Salamanca MD 11/24/2017 11:48 AM CDT
[2017-11-24] MEDS: SODIUM CHLORIDE 0.9% (FLUSH) 10 ML SYG IV SCH ×2 (11:55→20:40)
[2017-11-24] MEDS ORDERED: methylPREDNISolone SODIUM SUC 40 MG/ML VIAL IV SCH (12:00)
[2017-11-24] MEDS ORDERED: methylPREDNISolone SODIUM SUC 125 MG/2 ML VIAL IV ONE (12:31)
[2017-11-24] MEDS ORDERED: SODIUM CHL 0.9% 50ML MIN-BAG+ 50 ML IVPB ONE (14:38)
[2017-11-24] MEDS ORDERED: cefTRIAXone SODIUM 1 GM VIAL ONE (14:38)
[2017-11-24] MEDS: AZITHROMYCIN 250 MG TAB PO SCH (14:45)
[2017-11-24] MEDS: cefTRIAXone SODIUM 1 GM in SODIUM CHL 0.9% 50ML MIN-BAG+ 50 ML IVPB SCH (14:45)
[2017-11-24] MEDS: methylPREDNISolone SODIUM SUC 125 MG/2 ML VIAL IV SCH (17:30)
[2017-11-24] MEDS: MONTELUKAST 10 MG TAB PO SCH (20:40)
--- NOTE | 2017-11-24 21:44 | PN ---
DATE: 11/24/17 SUPERVISING PHYSICIAN: Bill Avendaño M.D. SUBJECTIVE: The patient notes that she is a little bit more short of breath today than yesterday but continues to be very noncompliant with wearing her nasal cannula. Again, I spoke to her at length about the importance of wearing her nasal cannula consistently with treatment of an underlying pulmonary embolism. She does remain afebrile. She has had no chest pains. No abdominal pain and no diarrhea. OBJECTIVE: VITAL SIGNS: T max 98.3, pulse 90, blood pressure 131/80, respirations 18, satting 94% on nasal cannula at rest on 2 liters and 90 to 91% on room air at rest. I's and O's show a negative balance of 442 with 2508 in, 2950 out. Weight is down to 77.8 kg. CHEST: Lung sounds are much more diminished than previous days with some new onset of inspiratory and expiratory wheezing. HEART: Regular rate and rhythm. ABDOMEN: Obese but soft, non- tender. Positive bowel sounds. EXTREMITIES: No clubbing, cyanosis or edema. NEUROLOGIC: She is alert and oriented times three. LABORATORY: White count did go up to 24,600 today with a left shift continued with 5% bands with hemoglobin and hematocrit stable at 12.7 and 37.8 with platelet count 273,000. Chemistries show continued normal electrolytes with BUN 11, creatinine 0.58. Liver functions are returning to baseline with AST now 29, ALT is down to 79, alkaline phosphatase at 103. MICROBIOLOGY: Final urine culture results show Escherichia coli which was sensitive to Ceftriaxone, resistant to fluoroquinolones, Ampicillin and Bactrim. Sputum culture remains pending. Blood cultures show to be negative at 48 hours. RADIOLOGY: She had a chest x-ray this morning per radiology interpretation, 2 view chest shows considered coarse and bilateral interstitial markings, right slightly greater than left, the findings may relate to chronic interstitial scarring with superimposed typical infectious/inflammatory process or interstitial edema may be similar in appearance. There is no confluent airspace consolidations, large pleural effusions or pneumothoraxes. This was followed-up with a CT of the chest and per radiology interpretation there was moderate emphysema with coarse interstitial markings in the lung bases more pronounced on the left than the right. No acute confluent airspace consolidations. Noted was negative for essential pulmonary embolism, although unable to evaluate beyond proximal segmental branches due to limitations due to technical difficulties with no acute CT chest findings noted. Again noted was a hiatal hernia. ASSESSMENT: 1. Acute pulmonary embolism left lower lobe with a 5 mm nodule in the right upper lobe as noted on CT with the patient continuing to be on PE protocol with Lovenox with slow clinical progression continuing to require supplemental oxygen and to be transitioned to Eliquis once clinically stable on discharge. 2. Acute exacerbation of chronic obstructive pulmonary disease with component of asthma and questionable community acquired pneumonia complicated by acute pulmonary embolism and likely infarction of a segment of the left lower lobe. 3. Increasing leukocytosis secondary to #1 and #2 with some demarginalization along with the corticosteroid administration. 4. Chronic hypoxia in a chronic smoker exacerbated by #1 and #2. 5. Poor medical compliance regarding chronic obstructive pulmonary disease treatment. 6. Hypertension, stable. 7. History of gastroesophageal reflux disease. 8. History of depression on Celexa. 9. Elevated liver enzymes, uncertain etiology, although returning to baseline levels felt to be probably related to acute illness state and improved with fluids and initiation of treatment for underlying chronic obstructive pulmonary disease exacerbation. PLAN: Will continue with PE protocol treatment with Lovenox 1 mg per kg until discharge and after discussing with Dr. Avendaño will transition him to Eliquis at discharge. She will continue on antibiotics with Rocephin and azithromycin. Given that she has shown acute worsening of her COPD and wheezing, will initiate more moderate doses of steroids with 80 mg initially and then this will be followed-up with 60 mg Solu-Medrol every 6 hours for 4 doses. Will work to transition her to p.o. medications prior to discharge. She will remain on Protonix for gastric protection. Will plan to repeat labs and x-rays in the morning. Until clinically stable, will continue to monitor and treat appropriately. [facility][id number] [facility]
[2017-11-25] MEDS: methylPREDNISolone SODIUM SUC 125 MG/2 ML VIAL IV SCH ×2 (00:05→05:57)
[2017-11-25] MEDS: PANTOPRAZOLE SODIUM TAB 40 MG PO SCH (05:58)
[2017-11-25 06:17] VITALS: BP 125/78; TEMP 97.3
--- NOTE | 2017-11-25 06:52 | RAD ---
Chest 2 view on 11/25/2017 CLINICAL INDICATION: CHF exacerbation COMPARISON: 11/24/2017 FINDINGS: Emphysema and chronic interstitial changes are noted. Retrocardiac opacity is consistent with a small hiatal hernia. Vascular calcification is noted in the aorta. Heart is within normal limits for size. Lungs are otherwise clear. IMPRESSION: No significant change and no acute disease. Electronically signed by: Laith Borrego 11/25/2017 6:51 AM CDT
[2017-11-25] MEDS: METOPROLOL TARTRATE 25 MG TAB PO SCH (08:04)
[2017-11-25] MEDS: ENOXAPARIN SODIUM 80 MG/0.8 ML SYG SUBCU SCH (08:04)
[2017-11-25] MEDS: NON-FORMULARY MEDICATION 1 EA MIS (Fluticasone-Umeclidinium-Vilan [Trelegy Ellipta 100-62. INH SCH (08:20)
[2017-11-25] MEDS: IPRATROPIUM/ALBUTEROL 3 ML VIAL NEB SCH (08:20)
[2017-11-25] MEDS: SODIUM CHLORIDE 0.9% (FLUSH) 10 ML SYG IV SCH (09:29)
[2017-11-25 10:49] VITALS: O2SAT 96
--- NOTE | 2017-11-28 08:45 | DS ---
SUPERVISING PHYSICIAN: Bill Avendaño MD ADMISSION DIAGNOSES: 1. Acute exacerbation of chronic obstructive pulmonary disease with component of asthma and chronic bronchitis with initial concerns for developing community acquired 2. Leukocytosis with concerns for early pneumonia as noted secondary to #1. 3. Questionable small pulmonary embolism, left lower lobe, along with a 5 mm nodule in the right upper lobe with initiation of PE protocol, 1 mg per kg of Lovenox. 4. Chronic hypoxia as noted with room air saturations 87 to 80% in a chronic smoker with chronic obstructive pulmonary disease exacerbation.. 5. Poor medical compliance regarding chronic obstructive pulmonary disease treatment. 6. Hypertension. 7. History of gastroesophageal reflux disease. 8. History of depression and on Celexa. 9. Urinary tract infection, initiated on antibiotics with Rocephin. DISCHARGE DIAGNOSES: 1. Acute pulmonary embolism, left lower lobe, with a 5 mm nodule in the right upper lobe as noted on CT with continued PE protocol transitioned from Lovenox to Eliquis and showing to be stable hemodynamically. 2. Acute exacerbation of chronic obstructive pulmonary disease with component of asthma and chronic bronchitis with questionable community acquired pneumonia complicated by #1 and a likely infarction of a segment of the left lower lobe. 3. Leukocytosis secondary to #1 and #2 with some demarginalization along with the corticosteroid administration. 4. Chronic hypoxia in a chronic smoker exacerbated by #1 and #2 requiring chronic 02. 5. Poor medical compliance regarding chronic obstructive pulmonary disease treatment. 6. Hypertension, stable. 7. History of gastroesophageal reflux disease. 8. History of depression on Celexa. 9. Elevated liver enzymes having returned to to baseline levels felt to secondary to acute illness state. 10. Urinary tract infection with final culture showing Escherichia coli. REASON FOR HOSPITALIZATION: Ms. Woods is a 57 year-old female patient with a long history of chronic obstructive pulmonary disease and recent hospitalizations for exacerbations. She presented to Dr. Avendaño clinic on date of admission, 11/22/17, and was noted to be significantly short of breath. She had been having a productive cough that was yellow-greenish in description along with significant wheezing. Her vital signs in the clinic showed she was significantly hypoxic with her room air SP02 at 87%. She was also noted to be tachycardiac with a rate of 110 [id number]. Given her history of recent cigarette smoking along with chronic obstructive pulmonary disease and findings of low 02 saturation, Dr. Avendaño requested the patient be directly admitted for exacerbation and further workup in regards to shortness of breath for possible pneumonia versus pulmonary embolism. Her laboratory studies showed she did have a leukocytosis initially on admission. D dimer in the clinic was elevated and CT of the chest to rule out pulmonary embolism per radiology interpretation showed no large central pulmonary embolism but question of a small emboli in the peripheral branches of the left lower lobe. There was also note of a right upper lobe 5 mm nodule that had been unchanged from previous exams. The patient was initiated on pulmonary embolism protocol with Lovenox and treatment for chronic obstructive pulmonary disease with asthma exacerbation with concerns for developing pneumonia. She is admitted in stable condition. LABORATORY STUDIES: Admission white count was 14,000, at discharge white count was 20,100. She did have a maximum white count of 24,600. Hemoglobin and hematocrit were stable at 13.5 and 39.2 respectively at discharge with normocytic normochromic RBC presentation with platelet count of 314,000 at discharge. She did show a left shift and a bandemia but this had improved prior to discharge. Chemistries showed stable electrolytes through admission with a potassium of 4.1. At discharge, BUN was stable at 11 and 0.49 for creatinine on discharge. Magnesium on admission was normal at 1.8, calcium normal at 9.2. Liver functions did show elevation of AST at 113, ALT at 116, alkaline phosphatase at 130. Prior to discharge her liver enzymes were returning to baseline levels with AST at 79, ALT at 78, alkaline phosphatase normalized at 104. Urinalysis showed positive nitrites with a trace of leukoesterase. Microscopic revealed 3 to 5 WBC with 3+ bacteria. MICROBIOLOGY: Sputum cultures still pending at discharge. Urine culture showed Escherichia coli that was sensitive to all but ampicillin, for quinolones and Bactrim with the patient having been on Rocephin and azithromycin. RADIOLOGY: CT of the chest was done to rule out pulmonary embolism as noted above. There was note of a small possible emboli in the left lung along with a right upper lobe nodule measuring 5 mm that was unchanged. There was no mention of consolidations at time of admission. She did have bilateral lower extremity DVT studies with Doppler that showed to be negative for deep venous thrombus. She had multiple chest x-rays through admission and last chest x-ray on date of discharge per radiology interpretation, 2-view chest, showed no significant change or acute disease with noted emphysema of chronic emphysematous changes with a retrocardiac opacity consistent with a small hiatal hernia, otherwise lungs were clear. HOSPITAL COURSE: Ms. Woods was admitted on 11/22/17 for exacerbation of chronic obstructive pulmonary disease with chronic bronchitis, asthma, concerns for pneumonia as well as left pulmonary embolism as noted on CTA. She was initiated antibiotics for coverage of the questionable pneumonia, community acquired, with Rocephin and azithromycin as well it was noted she had a urinary tract infection. In treatment of the pulmonary embolism, she was started on Lovenox 1 mg per kg b.i.d. and through her hospitalization showed good response to aggressive pulmonary hygiene along with requirements moderate corticosteroid administration that did result in a leukocytosis that was probably aggravated by underlying pulmonary embolism ischemic changes in the area of question on the left lung. She was showing to be stable on oxygen maintaining saturations in the mid 90s. She seemed to be stable, showed no other concerning symptoms and it was felt clinically improved well enough to continue with outpatient treatment management. Arrangements were made through Dr. Avendaño office to start her on Eliquis at discharge which she was followed up to get additional prescriptions or samples. Prior to discharge she was started on Eliquis 2.[address] Avendaño request with concerns for extension of the Eliquis due to antibiotic coverage for treatment of underlying urinary tract infection and pneumonia along with the corticosteroids. PLAN: Ms. Woods was discharged on 11/25/17 with instructions to utilize oxygen which she had in place prior to admission 13/12 with reemphasis that that the preferred treatment of the pulmonary embolism along with continued antibiotic coverage for her urinary tract infection and prevention of questionable pneumonia given extensive chronic obstructive pulmonary disease exacerbation. She was to have followup with Dr. Avendaño on 12/08/17 at 1345 as well as arrangements at that time for pulmonology. She was to take her medications on discharge. She was provided a steroid taper over 12 days. Again , she was given samples from Dr. Avendaño office [facility] and instructed with Dr. Avendaño with regards to continuation and change of dosage as needed. She was placed on Protonix for protection while on Eliquis and steroids. She was again encouraged to continue to stop smoking and told to followup with Dr. Avendaño or go the Emergency Department if any concerning symptoms occurred. DISCHARGE DIET: Regular as tolerated. ACTIVITIES: Increase as tolerated. DISCHARGE MEDICATIONS: Included: 1. Eliquis 2.5 mg twice a day #12 with samples provided by Dr. Avendaño. 2. Cefdinir 300 mg twice a day, !4. 3. Nystatin 5 mLs as needed for thrush, swish and swallow, 473 mL bottle, no refills. 4. Protonix 40 mg daily, #30. 5. Prednisone taper 10 mg tablets, 40 mg for 3 days, 30 for 3 days, 20 3 days and 10 mg until completed for total of 12-day treatment. All other medications prior to hospitalization were continued. CONDITION ON DISCHARGE: Stable and improved. [facility][id number] [facility]
== END 2017-11-25 11:14 | disposition home or self-care (01) | DRG 175 ==
LOC: MS 13:35
PROVIDERS: ADMIT Nurse Practitioner Family; ATTEND Nurse Practitioner Family
PROC: B32T0ZZ Computerized Tomography (CT Scan) of Left Pulmonary Artery using High Osmolar Contrast (ICD-10-PCS; 2017-11-22)
PROC: B32S0ZZ Computerized Tomography (CT Scan) of Right Pulmonary Artery using High Osmolar Contrast (ICD-10-PCS; 2017-11-22)
PROC: B32T0ZZ Computerized Tomography (CT Scan) of Left Pulmonary Artery using High Osmolar Contrast (ICD-10-PCS; principal; 2017-11-24)
PROC: B32S0ZZ Computerized Tomography (CT Scan) of Right Pulmonary Artery using High Osmolar Contrast (ICD-10-PCS; 2017-11-24)
DX: I26.99 Other pulmonary embolism without acute cor pulmonale (principal); J18.9 Pneumonia, unspecified organism; J44.1 Chronic obstructive pulmonary disease with (acute) exacerbation; N39.0 Urinary tract infection, site not specified; J44.0 Chronic obstructive pulmonary disease with (acute) lower respiratory infection; R09.02 Hypoxemia; F17.210 Nicotine dependence, cigarettes, uncomplicated; I10 Essential (primary) hypertension; K21.9 Gastro-esophageal reflux disease without esophagitis; F32.9 Major depressive disorder, single episode, unspecified; B96.20 Unspecified Escherichia coli [E. coli] as the cause of diseases classified elsewhere; R74.8 Abnormal levels of other serum enzymes; Z91.19 Patient's noncompliance with other medical treatment and regimen; Z79.899 Other long term (current) drug therapy

== ENCOUNTER → 2017-11-22 | Outpatient (CLI) | payer BC | LOC: GMAJ 15:29 | PROVIDERS: ATTEND Family Medicine | DX: R06.02 Shortness of breath (principal) ==

== ENCOUNTER 2018-03-20 21:45 | Emergency (ER) | payer BC ==
--- NOTE | 2018-03-20 22:27 | ED.PDOC ---
History of Present Illness - General Chief Complaint: General Stated Complaint: moth in right ear Time Seen by Provider: 03/20/18 21:57 Source: patient Exam Limitations: no limitations - History of Present Illness Initial Comments: The patient is a 57-year-old female presenting to the emergency room secondary to having a moth fly into her right ear canal about 30 minutes prior to arrival. she still feels that moving. Timing/Duration: 1/2 hour Severity: severe Improving Factors: nothing Worsening Factors: nothing Associated Symptoms: denies symptoms Allergies/Adverse Reactions: Allergies NO KNOWN ALLERGY Allergy (Verified 11/22/17 14:53) Home Medications: Ambulatory Orders Albuterol Sulfate Nebs [Proventil Nebs] 2.5 mg NEB Q4H PRN #120 vial 09/08/17 [id number]-[id number] [Trelegy Ellipta 100-62.5-25 Mcg/INH] 1 aer IN DAILY #28 aer 09/08/17 Metoprolol Tartrate [Lopressor] 25 mg PO BIDFD #60 tab 09/08/17 Montelukast [Singulair] 10 mg PO BEDTIME #30 tab 09/08/17 Citalopram Hydrobromide [Celexa] 20 mg PO JOSH-OTH-DAY 11/22/17 Apixaban [Eliquis] 2.5 mg PO BID #12 tab 11/25/17 Cefdinir [Omnicef] 300 mg PO BID #14 cap 11/25/17 Nystatin (Mouth-Throat) [Nystatin] 5 ml PO QID #473 ml 11/25/17 Pantoprazole Tablet [Protonix] 40 mg PO ACBK #30 tab 11/25/17 Prednisone See Taper PO DAILY #30 tab 11/25/17 Review of Systems - Review of Systems Constitutional: States: no symptoms reported EENTM: States: see HPI Respiratory: States: no symptoms reported Cardiology: States: no symptoms reported Gastrointestinal/Abdominal: States: no symptoms reported Genitourinary: States: no symptoms reported Musculoskeletal: States: no symptoms reported Skin: States: no symptoms reported Neurological: States: no symptoms reported Endocrine: States: no symptoms reported All other Systems: No Change from Baseline Past Medical History (General) - Patient Medical History Hx Seizures: No Hx Stroke: No Hx Asthma: No Hx of COPD: Yes Hx Congestive Heart Failure: No Hx Pacemaker: No Hx Hypertension: No Hx Diabetes: No Hx MRSA: No - Vaccination History Hx Tetanus, Diphtheria Vaccination: Yes - 1 year ago Hx Influenza Vaccination: No Hx Pneumococcal Vaccination: No - Social History Hx Tobacco Use: Yes Hx Chewing Tobacco Use: No Hx Alcohol Use: No Hx Substance Use: No Hx Substance Use Treatment: No Hx Depression: No Hx Physical Abuse: No Hx Emotional Abuse: No Hx Suspected Abuse: No - Female History Patient : No Family Medical History - Family History Mother Living Status: Son Hx Family Hypertension: Yes Hx Cardiac Disease: Yes Hx Family Diabetes: Yes Physical Exam - Physical Exam General Appearance: Alert, Anxious Eye Exam: bilateral normal Ears, Nose, Throat: hearing grossly normal, normal pharynx Neck: full range of motion, supple Respiratory: no respiratory distress, no accessory muscle use Cardiovascular/Chest: normal peripheral pulses, no edema, other - regular rate Peripheral Pulses: radial,right: 2+, radial,left: 2+ Rectal Exam: deferred Extremity: normal range of motion, no pedal edema, normal capillary refill 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 After risk and benefits were explained the patient did agree to removal. Alligator forceps were used to grasp the moth under direct visualization. It was still alive and intact when removed. Ear canal was cleaned with alcohol. No evidence of any scratch of the canal. ER warnings were given. Departure - Departure Clinical Impression: Foreign body of ear, left Qualifiers: Encounter type: initial encounter Qualified Code(s): T16.2XXA - Foreign body in left ear, initial encounter Disposition: Discharge to Home or Self Care Condition: Fair Departure Forms: ED Discharge - Pt. Copy, Patient Portal Self Enrollment Diet: regular diet Activity: increase activity as tolerated Referrals: Bill Avendaño MD [Primary Care Provider] - 1-2 Weeks Home Medications: Ambulatory Orders Albuterol Sulfate Nebs [Proventil Nebs] 2.5 mg NEB Q4H PRN #120 vial 09/08/17 Xyvorwvgoaq-Klkwfschwhsz-Vvczx [Trelegy Ellipta 100-62.5-25 Mcg/INH] 1 aer IN DAILY #28 aer 09/08/17 Metoprolol Tartrate [Lopressor] 25 mg PO BIDFD #60 tab 09/08/17 Montelukast [Singulair] 10 mg PO BEDTIME #30 tab 09/08/17 Citalopram Hydrobromide [Celexa] 20 mg PO JOSH-OTH-DAY 11/22/17 Apixaban [Eliquis] 2.5 mg PO BID #12 tab 11/25/17 Cefdinir [Omnicef] 300 mg PO BID #14 cap 11/25/17 Nystatin (Mouth-Throat) [Nystatin] 5 ml PO QID #473 ml 11/25/17 Pantoprazole Tablet [Protonix] 40 mg PO ACBK #30 tab 11/25/17 Prednisone See Taper PO DAILY #30 tab 11/25/17 Additional Instructions: the patient is a 57-year-old female presenting to the emergency room after having had a moth fly into her right ear canal. After risk and benefits were explained the patient did agree to removal. Alligator forceps were used to grasp the moth under direct visualization. It was still alive and intact when removed. Ear canal was cleaned with alcohol. No evidence of any scratch of the canal. ER warnings were given.
[2018-03-20 22:48] VITALS: BP 114/81; TEMP 98.5; O2SAT 93
== END 2018-03-20 22:45 | disposition home or self-care (01) ==
LOC: ER 21:45
DX: T16.1XXA Foreign body in right ear, initial encounter (principal); J44.9 Chronic obstructive pulmonary disease, unspecified; Z87.891 Personal history of nicotine dependence; Z79.899 Other long term (current) drug therapy

== ENCOUNTER 2018-05-11 12:31 | Inpatient (IN) | payer BC ==
--- NOTE | 2018-05-11 12:49 | ED.PDOC ---
History of Present Illness - General Chief Complaint: Respiratory Problem Stated Complaint: shortness of breath Time Seen by Provider: 05/11/18 12:45 Source: patient, RN notes reviewed - History of Present Illness Comments: The patient presents to the emergency department with complaint of shortness of breath that started approximately 3 days ago. The patient states that she has been coughing and notes yellow productive sputum with this issue. The patient states that she has also noted hypoxia with this issue and states that her pulse ox at home was noted to be 79%. Due to not getting any relief from her breathing treatments she comes into the ED for further evaluation and care at this time. The patient has admitted to [place] she was recently seen by a local provider and was placed on doxycycline and steroids due to concern that the patient is suffering from an acute exacerbation of her COPD. The patient does admit to actively smoking approximately one third pack per day. Possible Cause: occasional episodes Improving Factors: medication Worsening Factors: nothing Associated Symptoms: cough, nasal congestion, wheezing Respiratory Risk Factors: other Allergies/Adverse Reactions: Allergies NO KNOWN ALLERGY Allergy (Verified 03/20/18 22:48) Home Medications: Ambulatory Orders Albuterol Sulfate Nebs [Proventil Nebs] 2.5 mg NEB Q4H PRN #120 vial 09/08/17 Vsafewnwetm-Jjpkkvzitmzl-Nknrq [Trelegy Ellipta 100-62.5-25 Mcg/INH] 1 aer IN DAILY #28 aer 09/08/17 Citalopram Hydrobromide [Celexa] 20 mg PO DAILY 11/22/17 Pantoprazole Tablet [Protonix] 40 mg PO ACBK #30 tab 11/25/17 Prednisone See Taper PO DAILY #30 tab 11/25/17 Doxycycline Hyclate [Vibramycin] 100 mg PO DAILY 05/11/18 Review of Systems - Review of Systems Review of Systems: 05/11/18 12:53 A 10 point review of systems was done at the patient's bedside and is negative except as noted in the patient's HPI Past Medical History (General) - Patient Medical History Hx Seizures: No Hx Stroke: No Hx Dementia: No Hx Asthma: No Hx of COPD: Yes Hx Cardiac Disorders: No Hx Congestive Heart Failure: No Hx Pacemaker: No Hx Hypertension: No Hx Thyroid Disease: No Hx Diabetes: No Hx Gastroesophageal Reflux: No Hx Renal Disease: No Hx Cancer: No Hx of HIV: No Hx Hepatitis C: No Hx MRSA: No Surgical History: cholecystectomy, Hysterectomy - Vaccination History Hx Tetanus, Diphtheria Vaccination: Yes - 1 year ago Hx Influenza Vaccination: No Hx Pneumococcal Vaccination: No - Social History Hx Tobacco Use: Yes Hx Chewing Tobacco Use: No Hx Alcohol Use: No Hx Substance Use: No Hx Substance Use Treatment: No Hx Depression: No Hx Physical Abuse: No Hx Emotional Abuse: No Hx Suspected Abuse: No - Female History Patient : No Family Medical History - Family History Mother Family History: No Known Living Status: Still Living Son Hx Family Hypertension: Yes Hx Cardiac Disease: Yes Hx Family Diabetes: Yes Physical Exam - Physical Exam General Appearance: Anxious, Other - mild distress ENT Exam: normal ENT inspection, hearing grossly normal, TMs normal Neck: supple Respiratory: decreased breath sounds - no accesssory muscle usage noted., wheezing - diffusely as well as bilaterally. Cardiovascular/Chest: normal peripheral pulses, regular rate, rhythm Gastrointestinal/Abdominal: normal bowel sounds, non tender Extremity: normal range of motion Neurologic: alert, oriented x 3 Skin Exam: normal color Lymphatic: no adenopathy Progress - Progress Progress: 05/11/18 12:54 DDX: PNEUMONIA, BRONCHITIS, PULMONARY EMBOLISM, CHRONIC OBSTRUCTIVE PULMONARY DISEASE, ASTHMA, PULMONARY EDEMA, PLEURAL EFFUSION, ACUTE MYOCARDIAL INFARCTION, UPPER RESPIRATORY INFECTION. MEDICAL DECISION MAKING: PATIENT PRESENTATION CONSISTENT WITH DYSPNEA AT THIS TIME. WILL ORDER CBC TO EVALUATE FOR ANEMIA/WBC ELEVATION. PATIENT WILL RECEIVE BMP TO EVALUATE FOR ELECTROLYTE DERANGEMENT/DEHYDRATION. PATIENT WILL RECEIVE EKG/TROPONIN TO EVALUATE FOR ATYPICAL ACS. PATIENT WILL HAVE IMAGING OF THORAX TO EVALUATE FOR PULMONARY PATHOLOGY. PATIENT WILL RECEIVE BREATHING TX WELL. DISPO WILL BE DEPENDENT UPON FINDINGS DURING WORK UP. 05/11/18 13:53 The patient has been reassessed at this time. She has clinically improved status post albuterol breathing treatment. She has been advised of available labs at this time. The patient was advised we will CT angio her chest to exclude PE due to her hypoxia and comorbid conditions. The patient has no questions at this time. 05/11/18 14:37 The patient remains stable at this time. She has been advised of all lab and radiological results at this time. She was advised that she must follow up with her PCP for further evaluation of the abnormal findings on her CTA chest and that she must make an appointment to see him within 24 hours of being discharged. The patient has no questions at this time. She agrees with the plan to be admitted - Results/Orders Results/Orders: IT SHOULD BE NOTED ALL LAB AND RADIOLOGICAL DATA WAS REVIEWED PRIOR TO PATIENT ADMISSION. - EKG/XRAY/CT EKG: no ST T wave changes Comments: EKGnormal sinus rhythm, rate of 87 bpm, axis is nl. Similar to 06/16/[address]: CTA CHEST- REPORT REVIEWED. CT Ordered: Yes - Consult/PCP Time Called: 14:20 Consult/PCP: Trish LANCASTER PROJECT MANAGER [employer]IOR DESIGN(HOSPITALIST) Consult Reason/Comments: ADVISED OF PATIENT'S CONDITION AND ACCEPTS THE ADMISSION AT THIS TIME. Departure - Departure Clinical Impression: COPD exacerbation Disposition: Admit Patient Condition: Good Home Medications: Ambulatory Orders Albuterol Sulfate Nebs [Proventil Nebs] 2.5 mg NEB Q4H PRN #120 vial 09/08/17 Wssnbtxyupn-Ojntvraoienw-Kcela [Trelegy Ellipta 100-62.5-25 Mcg/INH] 1 aer IN DAILY #28 aer 09/08/17 Citalopram Hydrobromide [Celexa] 20 mg PO DAILY 11/22/17 Pantoprazole Tablet [Protonix] 40 mg PO ACBK #30 tab 11/25/17 Prednisone See Taper PO DAILY #30 tab 11/25/17 Doxycycline Hyclate [Vibramycin] 100 mg PO DAILY 05/11/18 Decision To Admit - Decistion To Admit Decision to Admit Reason: Medical Nature Decision to Admit Date: 05/11/18 Decision to Admit Time: 14:20
[2018-05-11] MEDS ORDERED: SODIUM CHLORIDE 0.9% 50 ML VIAL ONE (12:59)
[2018-05-11] MEDS ORDERED: ALBUTEROL SULFATE 2.5 MG/3 ML VIAL NEB ONE ×2 (13:00)
[2018-05-11] MEDS ORDERED: CEFEPIME 2 GM in SODIUM CHL 0.9% 50ML MIN-BAG+ 50 ML IVPB ONE (13:05)
[2018-05-11] MEDS ORDERED: SODIUM CHLORIDE 0.9% 1000ML 1,000 ML IVS ONE (13:05)
[2018-05-11] MEDS ORDERED: SODIUM CHL 0.9% 50ML MIN-BAG+ 50 ML IVPB ONE (13:10)
[2018-05-11] MEDS ORDERED: CEFEPIME 2 GM VIAL ONE (13:10)
[2018-05-11] MEDS: SODIUM CHL 0.9% 50ML VIAL 3 ML, ALBUTEROL SULFATE NEBS 15 MG NEB ONE ×4 (13:30→14:57)
--- NOTE | 2018-05-11 14:13 | CT ---
Study: CT angiography of the chest, pulmonary embolus protocol. Indication: hypoxia, concern for pe. Technique: Axial CT images were acquired through the chest after intravenous administration of contrast utilizing the CT angiography, pulmonary embolus protocol. Computer-generated 3D reconstructions (MIPS) were performed and reviewed. This exam was performed according to our departmental dose-optimization program, which includes automated exposure control, adjustment of the mA and/or kV according to patient size and/or use of iterative reconstruction technique. Comparison: None Findings: Atherosclerosis great vessels, aorta, and coronary arteries. No pulmonary embolus identified. Heart size normal. Moderate size hiatal hernia. Mildly enlarged right hilar lymph nodes with the largest measuring 12 mm x 10 mm. Degenerative changes of the spine noted. Emphysema. No consolidation, pleural effusion, or pneumothorax. Impression: No pulmonary embolus identified by CTA. Emphysema. Indeterminate enlarged right hilar lymph nodes. Follow-up contrast-enhanced CT chest in 6 month recommended. Moderate size hiatal hernia. Atherosclerosis. Electronically signed by: Jose Manuel Noland MD 05/11/2018 2:12 PM [facility]
[2018-05-11] MEDS ORDERED: methylPREDNISolone SODIUM SUC 125 MG/2 ML VIAL IV ONE (14:55)
--- NOTE | 2018-05-11 15:04 | HP ---
SUPERVISING PHYSICIAN: Bill Avendaño M.D. CHIEF COMPLAINT: Shortness of breath. HISTORY OF PRESENT ILLNESS: Ms. Woods is a 58 year-old female that presented to the Emergency Department today complaining of shortness of breath that has been worsening over the last 3 days. She notes that she over the last weekend developed a cough and some yellow sputum, and was seen in the [facility] walk- in clinic on Tuesday and started on doxycycline and Medrol Dosepak. She notes that she does wear oxygen at night. Her pulse oximetry at home she has been noting is in the low 70s even with oxygen. She notes that despite the antibiotics and steroids she has gotten worse over the last 3 days and presented to the E. R. for further treatment and evaluation. She is a current smoker of approximately a pack a day. She has a history of chronic obstructive pulmonary disease but has been noncompliant in the past. She is admitted in stable condition. PAST MEDICAL HISTORY: 1. Chronic obstructive pulmonary disease with poor control. PAST SURGICAL HISTORY: 1. Hysterectomy. 2. Cholecystectomy. 3. Right foot surgery in 2017. 4. Left hammer toe repair in 2018. CURRENT MEDICATIONS: 1. Doxycycline started on Tuesday. 2. Medrol Dosepak. 3. Multivitamins 1 daily. 4. Celexa 20 mg daily. 5. Proventil nebs 2.5 mg every 4 hours as needed. 6. Trelegy ellipta 100-62.5-25 mcg per inhaled 1 inhalation daily. 7. Protonix 40 mg daily. ALLERGIES: NO KNOWN DRUG ALLERGIES. FAMILY HISTORY: Unremarkable and noncontributory. SOCIAL HISTORY: The patient lives in [place]. 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 She is but currently lives with her ex-. She currently smokes about a pack a day and has so for the last 30 years. She denies any alcohol or illicit drug use. REVIEW OF SYSTEMS: CONSTITUTIONAL: Denies any fevers, chills, unexplained weight loss. HEENT: Positive for nasal congestion. Negative for sore throat, ear aches. RESPIRATORY: As noted in history of present illness, increasing cough, with orthopnea and exertional dyspnea with increasing purulent sputum. CARDIOVASCULAR: Negative for chest pains, palpitations, pedal edema or syncopal episodes. GASTROINTESTINAL: Negative for abdominal pains, constipation, diarrhea, nausea or vomiting. GENITOURINARY: Negative for dysuria, hematuria or polyuria. NEUROLOGIC: Negative for ataxia, seizures or other neuro or focal deficits. PHYSICAL EXAMINATION: VITAL SIGNS: Temperature on admission was 99.7, pulse 127, blood pressure 141/106, respirations 24 with obvious shortness of breath, satting 88% on room air and improving to 92% on nasal cannula at 2 liters at rest and improving to 95% after 2 nebulizer treatments. Admission weight is 78.7 kg. GENERAL: On adjustment to the Medical/Surgical floor the patient appears to be comfortable in no acute distress. She is somewhat anxious and disheveled. HEENT: Tympanic membranes are clear bilaterally. Oropharynx is pink and moist with no lesions. NECK: Supple, non-tender. Full range of motion. No jugular venous distention. CHEST: Lung sounds were decreased throughout with inspiratory wheezing bilaterally. No rales or rhonchi. CARDIOVASCULAR: Regular rate and rhythm with no appreciable murmurs, gallops, or rubs. ABDOMEN: Soft, non-tender. Positive bowel sounds. EXTREMITIES: Without any clubbing, cyanosis or edema. NEUROLOGIC: She is alert and oriented times three. Cranial nerves II-XII are grossly intact. LABORATORY: White count 11,700 with hemoglobin 15.5, hematocrit 46.3, platelet count 413,000 with differential showing a left shift. Blood gas analysis showed pH of 7.43 with pO2 of 61, pCO2 of 45, bicarb 29.4, satting 90% on 2 liters nasal cannula with oxyhemoglobin of 88%. Chemistries showed normal electrolytes with potassium 3.7, BUN 27, creatinine 0.59, glucose 110, magnesium 1.7. Lactic acid was normal at 0.9, calcium normal at 9.4, troponin was less than 0.02. Urinalysis showed to be within normal limits. MICROBIOLOGY: Sputum culture is pending. Blood culture is pending. RADIOLOGY: Chest thoracic CTA prior to admission per radiology interpretation showed no pulmonary embolus identified by CTA. Noted emphysema and intermediate enlarged right hilar lymph node, moderate sized hiatal hernia, and atherosclerosis. ASSESSMENT: 1. Acute exacerbation of chronic obstructive pulmonary disease having failed to respond to outpatient treatment plan with concerns for developing community acquired pneumonia. 2. Mild leukocytosis secondary to #1 and previous Medrol Dosepak. 3. Hypoxia with O2 saturations of 88% on room air at rest in a chronic smoker with a history of uncontrolled chronic obstructive pulmonary disease in current exacerbation. 4. Poor medical compliance in regards to treatment of her chronic obstructive pulmonary disease. 5. Chronic nicotine dependency in a chronic smoker. Again encouraged to stop smoking. PLAN: The patient is going to be admitted to the Medical/Surgical floor for further treatment of exacerbation of chronic obstructive pulmonary disease. She was given a dose of Cefepime in the E. R. The patient is stable without signs of sepsis so I will change her antibiotics to azithromycin and Rocephin. Will await sputum culture results to further target antibiotic therapy. She will be on aggressive pulmonary hygiene with DuoNeb treatments q.i.d. She will be on DVT prophylaxis as per protocol. Will put her on corticosteroids which she initially was given 80 mg in the E. R. This will be followed-up with 60 mg every 6 hours for 3 doses with the intention of tapering to p.o. dose prior to discharge. Will anticipate her length of stay to be at least 2 to 3 days. Until she can transition to outpatient management will continue to monitor and treat as needed. #[id number] MTDD
[2018-05-11] MEDS ORDERED: ACETAMINOPHEN 325 MG TAB PO PRN (15:54)
[2018-05-11] MEDS ORDERED: ONDANSETRON INJ 4 MG/2 ML VIAL IV PRN (15:54)
[2018-05-11] MEDS ORDERED: ALBUTEROL SULFATE 2.5 MG/3 ML VIAL NEB PRN ×2 (16:03→16:30)
[2018-05-11] MEDS ORDERED: AZITHROMYCIN IV 500 MG in SODIUM CHLORIDE 0.9% 250ML 250 ML IVPB ONE (16:10)
[2018-05-11] MEDS ORDERED: IPRATROPIUM/ALBUTEROL 3 ML VIAL NEB ONE (16:19)
[2018-05-11] MEDS: IV SET AND CAP CHANGE INJ INJ SCH (16:24)
[2018-05-11] MEDS ORDERED: SODIUM CHLORIDE 0.9% 250ML 250 ML ONE (16:25)
[2018-05-11] MEDS ORDERED: AZITHROMYCIN IV 500 MG VIAL IVPB ONE ×2 (16:25→16:26)
[2018-05-11] MEDS: IPRATROPIUM/ALBUTEROL 3 ML VIAL NEB SCH ×2 (16:30→20:05)
[2018-05-11] MEDS ORDERED: TEMAZEPAM 15 MG CAP PO PRN (18:04)
[2018-05-11] MEDS ORDERED: ALPRAZolam 0.25 MG TAB PO PRN (18:04)
[2018-05-11] MEDS ORDERED: MAGNESIUM SULFATE PREMIX 2GM 2 GM in PREMIX BAG 1 BAG IVPB ONE (18:51)
[2018-05-11] MEDS ORDERED: MAGNESIUM SULFATE PREMIX 2GM 50 ML IVPB ONE (19:13)
[2018-05-11] MEDS: KCL 20MEQ/D5 1/2NS 1,000 ML IVS PRN (20:13)
[2018-05-11] MEDS: methylPREDNISolone SODIUM SUC 125 MG/2 ML VIAL IV SCH ×2 (20:50→23:48)
[2018-05-11] MEDS: guaiFENesin ER TAB 600 MG TAB PO SCH (20:51)
[2018-05-12] MEDS: methylPREDNISolone SODIUM SUC 125 MG/2 ML VIAL IV SCH ×3 (06:09→20:55)
[2018-05-12] MEDS ORDERED: PANTOPRAZOLE SODIUM TAB 40 MG PO SCH (07:00)
[2018-05-12] MEDS ORDERED: SODIUM CHL 0.9% 50ML MIN-BAG+ 50 ML IVPB ONE (07:06)
[2018-05-12] MEDS ORDERED: cefTRIAXone SODIUM 1 GM VIAL ONE (07:07)
--- NOTE | 2018-05-12 07:13 | RAD ---
EXAM DESCRIPTION: Chest,2 Views CLINICAL HISTORY: Pneumonia COMPARISON: November 25, 2017 FINDINGS: The cardiomediastinal silhouette is unremarkable. There is no airspace consolidation or pleural effusion. A small nodular opacity projects over the left lung base. The lungs are hyperinflated. There is no pneumothorax or acute fracture. IMPRESSION: Emphysema with a possible left basilar lung nodule. This was not included on recent CTA chest. Chest CT or short-term follow-up chest radiograph should be considered for further evaluation. Electronically signed by: Asif Lyon MD 05/12/2018 7:11 AM [facility]
[2018-05-12] MEDS: KCL 20MEQ/D5 1/2NS 1,000 ML IVS PRN (07:19)
[2018-05-12] MEDS: cefTRIAXone SODIUM 1 GM in SODIUM CHL 0.9% 50ML MIN-BAG+ 50 ML IVPB SCH (08:16)
[2018-05-12] MEDS: guaiFENesin ER TAB 600 MG TAB PO SCH ×2 (08:16→20:55)
[2018-05-12] MEDS: IPRATROPIUM/ALBUTEROL 3 ML VIAL NEB SCH ×5 (08:41→20:28)
[2018-05-12] MEDS: FLUTICASONE UMECLIDINIUM VILAN IN SCH (08:45)
[2018-05-12] MEDS ORDERED: ALPRAZolam 0.5 MG TAB ONE (12:04)
[2018-05-12] MEDS ORDERED: SODIUM CHLORIDE 0.9% (FLUSH) 10 ML SYG IV ONE (14:05)
[2018-05-12] MEDS ORDERED: AZITHROMYCIN IV 500 MG VIAL IVPB ONE (14:57)
[2018-05-12] MEDS ORDERED: SODIUM CHLORIDE 0.9% 250ML 250 ML ONE (14:57)
[2018-05-12] MEDS: AZITHROMYCIN IV 500 MG in SODIUM CHLORIDE 0.9% 250ML 250 ML IVPB SCH (15:18)
--- NOTE | 2018-05-12 17:39 | PN ---
DATE: 05/12/18 SUPERVISING PHYSICIAN: Bill Avendaño M.D. SUBJECTIVE: This morning the patient reports that her breathing is a little bit easier but she is very tearful and anxious as she had just recently lost one of her pets at home. She has been given some Xanax which seems to be helping. I discussed with her that she needs at least another 24 to 48 hours of hospitalization as she has not shown a significant amount of improvement and she is in agreement. OBJECTIVE: VITAL SIGNS: Temperature 97.9, pulse 91, blood pressure 149/85, respirations 18, satting 89% on room air and 97% on nasal cannula at 2 liters at rest. I's and O's show a positive balance of 313. She has been saline locked. Weight is 75.6 kg. GENERAL: The patient is anxious but appears to be in no acute distress. She is very tearful having recently received bad news, but she is alert. CHEST: Lung sounds remain diminished throughout with coarse sounds in all lung artis but no obvious wheezing or rales. HEART: Regular rate and rhythm. ABDOMEN: Soft, non-tender. Positive bowel sounds. EXTREMITIES: Without clubbing, cyanosis or edema. NEUROLOGIC: She is alert and oriented times three. LABORATORY: White count now has normalized to 8,900, hemoglobin and hematocrit are showing to be stable at 14.7 and 44.3, respectively with platelet count 385,000. Differential does show a left shift. Chemistries show normal electrolytes with BUN 14, creatinine 0.48, magnesium is normalized to 2.0 with calcium 9.1. Urinalysis showed to be within normal limits. MICROBIOLOGY: Blood culture remains pending. Sputum culture is pending. RADIOLOGY: Repeat chest x-ray this morning per radiology interpretation shows emphysema with possible left basilar lung nodule not seen previously on recent CT of the chest. Recommend followup. ASSESSMENT: 1. Acute exacerbation of chronic obstructive pulmonary disease having failed to respond to outpatient treatment plan with concerns for developing community acquired pneumonia with the patient showing slight response and requiring aggressive corticosteroids and pulmonary toiletry. 2. Mild leukocytosis secondary to #1 and previous Medrol Dosepak, now resolved after initiation of treatment. 3. Hypoxia with O2 saturations continuing to show in the 80s at rest, again in a chronic smoker with uncontrolled chronic obstructive pulmonary disease. 4. Poor medical compliance in regards to treatment of chronic obstructive pulmonary disease. 5. Chronic nicotine dependency. Again encouraged to stop smoking. PLAN: Will continue with more aggressive management of the corticosteroids as she has shown good response to current treatment. Will change regimen to every 12 hours but remain with 60 mg. Will saline lock her as she is now hydrated. She continues on DVT prophylaxis and aggressive pulmonary hygiene. Will continue with current antibiotic therapy with Rocephin and azithromycin. Will anticipate at least another 24 to 48 hours of hospitalization as the patient is showing slow clinical improvement. Until she can transition to outpatient management will continue to monitor and treat as needed. #[id number] [facility]
[2018-05-12] MEDS ORDERED: PANTOPRAZOLE SODIUM TAB 40 MG PO ONE (19:09)
[2018-05-12] MEDS ORDERED: SODIUM CHLORIDE 0.9% 500ML 500 ML IVS ONE (19:49)
[2018-05-12] MEDS ORDERED: LEVALBUTEROL NEBS 1.25 MG/3 ML VIAL NEB ONE (20:36)
[2018-05-12] MEDS: ENOXAPARIN SODIUM 40 MG/0.4 ML SYG SUBCU SCH (20:55)
[2018-05-13] MEDS: LEVALBUTEROL NEBS 1.25 MG/3 ML VIAL NEB SCH ×3 (00:10→16:31)
[2018-05-13] MEDS: PANTOPRAZOLE SODIUM TAB 40 MG PO SCH (06:38)
[2018-05-13] MEDS ORDERED: cefTRIAXone SODIUM 1 GM VIAL ONE ×2 (08:12→08:13)
[2018-05-13] MEDS ORDERED: SODIUM CHL 0.9% 50ML MIN-BAG+ 50 ML IVPB ONE (08:13)
[2018-05-13] MEDS: FLUTICASONE UMECLIDINIUM VILAN IN SCH (08:25)
[2018-05-13] MEDS: cefTRIAXone SODIUM 1 GM in SODIUM CHL 0.9% 50ML MIN-BAG+ 50 ML IVPB SCH (08:43)
[2018-05-13] MEDS: methylPREDNISolone SODIUM SUC 125 MG/2 ML VIAL IV SCH (08:44)
[2018-05-13] MEDS: guaiFENesin ER TAB 600 MG TAB PO SCH ×2 (08:44→20:35)
[2018-05-13] MEDS ORDERED: SODIUM CHLORIDE 0.9% 250ML 250 ML ONE (16:30)
[2018-05-13] MEDS ORDERED: AZITHROMYCIN IV 500 MG VIAL IVPB ONE (16:31)
[2018-05-13] MEDS: ALPRAZolam 0.5 MG TAB PO PRN (16:34)
[2018-05-13] MEDS: AZITHROMYCIN IV 500 MG in SODIUM CHLORIDE 0.9% 250ML 250 ML IVPB SCH (16:53)
[2018-05-13] MEDS ORDERED: METOPROLOL TARTRATE INJ 5 MG/5 ML VIAL IV ONE (17:01)
[2018-05-13] MEDS: SODIUM CHLORIDE 0.9% (FLUSH) 10 ML SYG IV PRN (19:49)
[2018-05-13] MEDS ORDERED: methylPREDNISolone SODIUM SUC 40 MG/ML VIAL IV ONE (20:00)
[2018-05-13] MEDS: ENOXAPARIN SODIUM 40 MG/0.4 ML SYG SUBCU SCH (20:35)
--- NOTE | 2018-05-13 22:00 | PN ---
DATE: 05/13/18 SUPERVISING PHYSICIAN: Bill Avendaño M.D. SUBJECTIVE: The patient is making progress, although slow. Her biggest issue has been stress and anxiety. She actually required some Ativan last night. Her ex- is causing some issues with her and has been requested not to come to the hospital until she has been discharged at the request of her as well. She notes that she feels like her lung function is improving, but she is still not able to exert much effort without getting short of breath. She does remain afebrile and she has had no nausea, vomiting or diarrhea. OBJECTIVE: VITAL SIGNS: Temperature 98.1, pulse 111, blood pressure 128/82, respirations 18, satting 94% on nasal cannula at rest on 2 liters. I's and O's show a negative balance of 126 with 2699 in, 2825 out. Weight 74.6 kg. GENERAL: The patient continues to be somewhat anxious but more pleasant this morning and she is alert and in no acute obvious distress. CHEST: Lung sounds are much more aerated today with just very faint expiratory wheezing and some diminished towards the bases. ABDOMEN: Soft, non-tender. Positive bowel sounds. EXTREMITIES: Without any clubbing, cyanosis or edema. NEUROLOGIC: She is alert and oriented times three. LABORATORY: White count now has normalized to 8,900, hemoglobin 14.7, hematocrit 44.3, platelet count 385,000. Differential shows a continued left shift. Chemistries show normal electrolytes with potassium 4.4, BUN 14, creatinine 0.48. Magnesium is now normal at 2.0. MICROBIOLOGY: Sputum culture is pending. Blood cultures remain negative at 48 hours. RADIOLOGY: Repeat chest x-ray will be done in the morning. ASSESSMENT: 1. Acute exacerbation of chronic obstructive pulmonary disease again failing to respond to outpatient treatment plan with probable developing community acquired pneumonia requiring continued aggressive management with corticosteroids, pulmonary toiletry and antibiotics. 2. Leukocytosis secondary to #1, now back to baseline probably previously due to steroids prior to admission. 3. Persistent hypoxia with exertion and on room air in a chronic smoker. 4. History of poor medical compliance in regards to her chronic obstructive pulmonary disease treatment. 5. Chronic nicotine dependency. Again encouraged to stop smoking. PLAN: Will continue with aggressive management with corticosteroids and antibiotics. I have changed her to 40 mg every 12 hours with anticipation of hopefully being able to go to p.o. dose in the morning of prednisone. Will repeat a chest x-ray in the morning and hold off on any labs as she is showing to be stable in regards to her labs. Anticipate hopefully being able to discharge either later tomorrow or possibly Tuesday. Until she can transition to outpatient management will continue to monitor and treat as needed. #[id number] MTDD
[2018-05-14] MEDS ORDERED: predniSONE 20 MG TAB ONE (05:14)
[2018-05-14] MEDS ORDERED: SODIUM CHL 0.9% 50ML MIN-BAG+ 50 ML IVPB ONE (05:14)
[2018-05-14] MEDS ORDERED: cefTRIAXone SODIUM 1 GM VIAL ONE (05:14)
[2018-05-14] MEDS: PANTOPRAZOLE SODIUM TAB 40 MG PO SCH (06:05)
[2018-05-14] MEDS: LEVALBUTEROL NEBS 1.25 MG/3 ML VIAL NEB SCH ×3 (08:17→16:27)
[2018-05-14] MEDS: FLUTICASONE UMECLIDINIUM VILAN IN SCH (08:17)
--- NOTE | 2018-05-14 08:43 | RAD ---
PROCEDURE: Chest,2 Views CLINICAL HISTORY: pneumonia INDICATION: Same as above COMPARISON: 05/12/2018 -chest x-ray and CT of the lung done on 05/11/2018 TECHNIQUE: PA and and lateral chest radiographs were obtained. FINDINGS: There are underlying changes of COPD. There is no interval change in the appearance or the size of the ill-defined nodular opacity seen in the left lower lobe of the lung, since the prior study done on 05/12/2018. This finding can be further assessed with a dedicated CT of the chest, as the prior CT chest done on 05/11/2018 did not include this segment of the left lung There are no pneumothoraces or pleural effusions. The pulmonary vascularity is normal The cardiomediastinal silhouette is unremarkable for patient's age and sex. IMPRESSION: There is no interval change in the appearance or the size of the ill-defined nodular opacity seen in the left lower lobe of the lung, since the prior study done on 05/12/2018. This finding can be further assessed with a dedicated CT of the chest, as the prior CT chest done on 05/11/2018 did not include this segment of the left lung Electronically signed by: Scott Raines MD 05/14/2018 8:41 AM RN COMMUNITY Workstation: [id number]
[2018-05-14] MEDS: predniSONE 20 MG TAB PO SCH (09:00)
[2018-05-14] MEDS: guaiFENesin ER TAB 600 MG TAB PO SCH ×2 (09:01→20:09)
[2018-05-14] MEDS: SODIUM CHLORIDE 0.9% (FLUSH) 10 ML SYG IV PRN (09:01)
[2018-05-14] MEDS: cefTRIAXone SODIUM 1 GM in SODIUM CHL 0.9% 50ML MIN-BAG+ 50 ML IVPB SCH (09:01)
[2018-05-14] MEDS: ALPRAZolam 0.5 MG TAB PO PRN ×2 (09:09→20:09)
--- NOTE | 2018-05-14 11:34 | CT ---
EXAM DESCRIPTION: Chest w/o Contrast CLINICAL HISTORY: 58 years Female COPD, LLL nodule F/U COMPARISON: CTA chest 05/11/2018 TECHNIQUE: Contiguous axial images of the chest were obtained from the thoracic inlet up to the upper abdomen without the intravenous administration of contrast. Coronal and sagittal reconstructions are also obtained. This exam was performed according to our departmental dose-optimization program, which includes automated exposure control, adjustment of the mA and/or kV according to patient size and/or use of iterative reconstruction technique. FINDINGS: HEART: The heart is normal in size and configuration. There is no evidence of a significant pericardial effusion. There is minimal atherosclerosis in the LAD coronary artery VASCULATURE: There is no evidence of aortic aneurysm, dissection or acute injury. MEDIASTINUM: There is a small sliding-type hiatal hernia again noted. No evidence of hilar, mediastinal or axillary adenopathy. LUNGS: There is moderate diffuse centrilobular emphysema. No gross consolidation. A 2 mm nodular density is noted in the right upper lobe (series 2, image 20). In correlation with the study of 05/11/2018, which was performed with 1.25 mm slices, this finding results from a confluence of vascular shadows and/or scarring. PLEURAL SPACES: There is no evidence of pleural fluid. There is no evidence of a pneumothorax. UPPER ABDOMEN: The visualized upper abdominal structures are unremarkable status post cholecystectomy. OSSEOUS STRUCTURES: There is a moderate to severe compression deformity at approximately T11 and mild superior endplate depression at T12 which are chronic and unchanged since 11/24/2017 oh prominence of the vertical trabeculae in the spine suggests bone demineralization. There is a healing fracture of the anterior left sixth rib which likely accounts for the ill-defined opacity on plain film imaging projecting in the left lower lung. [] IMPRESSION: Diffuse centrilobular emphysema without acute cardiopulmonary abnormality. A 2 mm nodular density is noted in the right upper lobe (series 2, image 20). In correlation with the study of 05/11/2018, which was performed with 1.25 mm slices, this finding results from a confluence of vascular shadows and/or scarring. A healing fracture of the left anterior sixth rib likely accounts for the ill-defined opacity in the left lower lung on plain film imaging. Minimal LAD coronary atherosclerosis. There are no parenchymal soft tissue nodules in the lungs. Electronically signed by: Irena Quiroz MD 05/14/2018 11:33 AM MECHANICAL FACILITIES TECHNICIAN
[2018-05-14] MEDS ORDERED: SODIUM CHLORIDE 0.9% 250ML 250 ML ONE (16:02)
[2018-05-14] MEDS ORDERED: AZITHROMYCIN IV 500 MG VIAL IVPB ONE (16:02)
[2018-05-14] MEDS: AZITHROMYCIN IV 500 MG in SODIUM CHLORIDE 0.9% 250ML 250 ML IVPB SCH (16:10)
[2018-05-14] MEDS: IV SET AND CAP CHANGE INJ INJ SCH (16:45)
--- NOTE | 2018-05-14 19:14 | PN ---
DATE: 05/14/18 SUPERVISING PHYSICIAN: Bill Avendaño M.D. SUBJECTIVE: Last night the nurses called me that the patient was having some distress, but was quite anxious as her ex- had been visiting and upset the patient a great deal. I visited with her at length and discussed that she needs to ask her ex- to please not come visit if he is going to cause problems. An ABG was completed that showed excellent improvement of her O2 at 73 and a fairly stable pCO2 at 47. She is satting much better than at admission at 94% on 3 liters nasal cannula. I discussed that she is now transitioned to p.o. prednisone but continues to have some mild wheezing and still is quite short of breath even with minimal exertion and needing at least another 24 hours of more aggressive management, and she is in agreement with this plan of care. She has remained afebrile. OBJECTIVE: VITAL SIGNS: Temperature 98.5, pulse 114, blood pressure 132/82, respirations 16, satting 97% on nasal cannula at rest on 3 liters. I's and O's show a positive balance of 183 with 1483 in, 1300 out. Weight 74.8 kg. GENERAL: The patient is quite tearful and anxious, but she is alert. CHEST: Lung sounds remain diminished but improved from admission, but she still has faint expiratory wheeze which is diffuse. She becomes easily hypoxic if she is off O2 with minimal exertion. HEART: Regular rate and rhythm showing a tachycardic rate on the monitor. ABDOMEN: Soft, non-tender. Positive bowel sounds. EXTREMITIES: No clubbing, cyanosis or edema. NEUROLOGIC: She is alert and oriented times three. LABORATORY: Laboratory studies have been fairly stable except for I repeated an ABG last night that showed a pH of 7.41 with pO2 of 73, pCO2 of 47, bicarb was 29 with base excess of 4. She was satting 94% on 3 liters nasal cannula. MICROBIOLOGY: Sputum culture showed no growth and her blood cultures remain negative at 3 days. RADIOLOGY: She had a CT of the chest 2 view and per radiology interpretation there was no interval change in the appearance or the size of the ill-defined nodular opacity seen in the left lower lobe of the lung. Recommended a dedicated CT of the chest to further assess given that on prior exam of 05/12/18 the portion of the lung segment was not included. CT of the chest without contrast per radiology interpretation showed diffuse central lobular emphysema without acute cardiopulmonary abnormalities. A 2 mm nodular density is noted in the right upper lobe in correlation with studies on 05/11/18, this finding results from a confluence of vascular shadows and scarring. A healing fracture of the left anterior sixth rib likely accounts for the ill-defined opacity in the left lower lung on plain film imaging. ASSESSMENT: 1. Acute exacerbation of chronic obstructive pulmonary disease failing to respond to outpatient management with CT findings consistent with central lobular emphysema with the patient continuing to need aggressive corticosteroid and pulmonary toiletry, and antibiotics for concern for possible community acquired pneumonia developing. 2. Leukocytosis secondary to #1, now at baseline felt to be secondary to steroids prior to admission. 3. Persistent mild hypoxia with exertion as noted on repeat ABG with easy desaturations on room air with the patient being a chronic smoker. 4. History of poor medical compliance in regards to her chronic obstructive pulmonary disease treatment. 5. Chronic nicotine dependency. Again encouraged to stop smoking. PLAN: I have discussed with her that will continue at least another 24 hours with more aggressive management with p.o. prednisone. We gave her 40 this morning. More likely will need to give her at least another 20 tonight, but I have stair-stepped her off the IV corticosteroids in anticipation of hopefully being able to discharge in the morning. I have again encouraged her to encourage her ex- to stay at home as this seems to stress her out quite a bit. In fact, I have had to use Ativan twice to calm her down. Will hold off on any x-rays and labs since we did the CT today with no significant findings other than the central lobular emphysema and her laboratories have been stable. If she does well overnight, again anticipate discharging tomorrow. Until she can transition to outpatient management will continue to monitor and treat as needed. #[id number] [facility]
[2018-05-14] MEDS: ENOXAPARIN SODIUM 40 MG/0.4 ML SYG SUBCU SCH (20:09)
[2018-05-15] MEDS: PANTOPRAZOLE SODIUM TAB 40 MG PO SCH (06:16)
[2018-05-15] MEDS ORDERED: SODIUM CHL 0.9% 50ML MIN-BAG+ 50 ML IVPB ONE (07:10)
[2018-05-15] MEDS ORDERED: cefTRIAXone SODIUM 1 GM VIAL ONE (07:10)
[2018-05-15] MEDS: LEVALBUTEROL NEBS 1.25 MG/3 ML VIAL NEB SCH ×2 (08:12)
[2018-05-15] MEDS: FLUTICASONE UMECLIDINIUM VILAN IN SCH (08:12)
[2018-05-15] MEDS: cefTRIAXone SODIUM 1 GM in SODIUM CHL 0.9% 50ML MIN-BAG+ 50 ML IVPB SCH (08:34)
[2018-05-15] MEDS: predniSONE 20 MG TAB PO SCH (08:34)
[2018-05-15] MEDS: guaiFENesin ER TAB 600 MG TAB PO SCH (08:34)
[2018-05-15 10:12] VITALS: BP 133/87; TEMP 98.2; O2SAT 89
[2018-05-15] MEDS ORDERED: CITALOPRAM HBR 20 MG TAB PO SCH (11:00)
[2018-05-15] MEDS ORDERED: SODIUM CHLORIDE 0.9% (FLUSH) 10 ML SYG IV SCH (21:00)
--- NOTE | 2018-05-15 22:30 | DS ---
SUPERVISING PHYSICIAN: Bill Avendaño M.D. DISCHARGE DIAGNOSIS: 1. Acute exacerbation of chronic obstructive pulmonary disease failing to respond to outpatient management with CT findings consistent with central lobular emphysema with the patient continuing to need aggressive corticosteroid and pulmonary toiletry, and antibiotics for concern for possible community acquired pneumonia developing. 2. Leukocytosis secondary to #1, now at baseline felt to be secondary to steroids prior to admission. 3. Persistent mild hypoxia with exertion as noted on repeat ABG with easy desaturations on room air with the patient being a chronic smoker. 4. History of poor medical compliance in regards to her chronic obstructive pulmonary disease treatment. 5. Chronic nicotine dependency. Again encouraged to stop smoking. 6. History of depression and anxiety on Celexa. HISTORY OF PRESENT ILLNESS: This is a 58 year-old female patient who presented to the Emergency Department complaining of shortness of breath that had been worsening 3 days prior to admission. She had had a cough and some yellow sputum, and was seen in the [facility] walk-in clinic on Tuesday. She was started on doxycycline and Medrol Dosepak. She wears oxygen chronically at home mostly at night. Her O2 sats were in the low 70s even with oxygen. In spite of the antibiotics and steroids she had gotten worse and she presented to the E. R[facility] for further treatment and evaluation. She is currently a smoker and smokes approximately a pack a day. She has a history of chronic obstructive pulmonary disease with noncompliance. She also has a history of depression and anxiety. She was admitted to the hospital for exacerbation of her chronic obstructive pulmonary disease as well as hypoxia, mild leukocytosis and poor medical compliance in a chronic smoker. HOSPITAL COURSE: Blood cultures were drawn as well as a sputum culture was obtained. She was started on azithromycin and Rocephin as well as some IV Solu- Medrol. She was given aggressive pulmonary hygiene including DuoNeb. She was also placed on DVT prophylaxis as well as ulcer prophylaxis. She had a CTA of the chest and thorax in the Emergency Room and showed emphysema with no pulmonary embolus. There was an indeterminate enlarged right hilar lymph node. Followup contrast enhanced CT of the chest in 6 months is recommended. She had shown some improvement during her hospital stay. Her steroids were tapered off and she was started on some prednisone p.o. Pulmonary hygiene was continued. She did have several episodes of tachycardia and her heart rate was for the most part in the 90s to low 100s. She was quite tearful and anxious during her hospital stay as her dog had been put to sleep and she had some problems at home. She was found to be on the telephone several times in an argument and during those times her heart rate would go up into the 110s to 120s. She refused any anti-anxiety medication. She does wear O2 at home and has walked in the hallway several times. She has had no complaints of worsening shortness of breath. A second ABG was done and it showed improvement with her CO2 at 73 and pCO2 stable at 47. During her stay her ex- came to the hospital and he was encouraged to stay away from the patient as she quite quite excited and anxious during his visit, so he was asked to not visit the patient. Since then she has had 2 doses of Ativan, but other than that she has refused it. She will be discharged home in stable condition today. LABORATORY: WBCs were 11,700 and have improved to 8,900. Hemoglobin and hematocrit are stable at 14.7 and 44.3. Her pCO2 is stable at 47 with pO2 of 73. Oxygen saturation is 94.4% on ABGs. Electrolytes are basically within normal limits. At one point her magnesium was slightly low at 1.7 but was replaced and is now 2.0. Urinalysis was within normal limits on admission. Preliminary blood cultures showed no growth after 3 days. Final sputum gram stain showed moderate mixed normal respiratory estelle. Sputum culture showed no growth after 12 hours of incubation. A CT of the chest was performed that showed diffuse centrilobular emphysema without acute pulmonary abnormality. A 2 mm nodular density was noted in the right upper lobe. In correlation with the study from 05/11/18, this finding results from a confluence of vascular shadows and/or scarring. Chest x-ray on 05/14/18 showed no interval change in appearance of the size of the ill-defined nodular opacity seen in the left lower lobe of the lung since prior study. DISCHARGE PLAN: The patient will be discharged home in stable condition. She is to resume her previous diet. She has been strongly encouraged to stop smoking. She is to increase her activity as tolerated. She is to followup with her primary care physician, Dr. Avendaño, within 1 to 2 weeks. She is to resume her previous medications as well as 4 additional days of azithromycin and 8 additional days of Cefdinir as well as to continue on Guaifenesin 1200 mg twice daily. She is to return to the hospital or followup with Dr. Avendaño for any further problems or complications. DISCHARGE MEDICATIONS: 1. Albuterol. 2. Trelegy ellipta. 3. Citalopram. 4. Pantoprazole. 5. Prednisone taper. 6. Multiple vitamins. 7. Azithromycin. 8. Cefdinir. 9. Guaifenesin. #[id number] [facility]
== END 2018-05-15 11:39 | disposition home or self-care (01) | DRG 192 ==
LOC: ER 12:31 → MS 15:03
PROVIDERS: ADMIT Nurse Practitioner Family; ATTEND Nurse Practitioner Family
PROC: B32T0ZZ Computerized Tomography (CT Scan) of Left Pulmonary Artery using High Osmolar Contrast (ICD-10-PCS; principal; 2018-05-11)
PROC: B32S0ZZ Computerized Tomography (CT Scan) of Right Pulmonary Artery using High Osmolar Contrast (ICD-10-PCS; 2018-05-11)
DX: J43.2 Centrilobular emphysema (principal); D72.829 Elevated white blood cell count, unspecified; T38.0X5A Adverse effect of glucocorticoids and synthetic analogues, initial encounter; Y92.009 Unspecified place in unspecified non-institutional (private) residence as the place of occurrence of the external cause; R09.02 Hypoxemia; F17.210 Nicotine dependence, cigarettes, uncomplicated; F41.9 Anxiety disorder, unspecified; F32.9 Major depressive disorder, single episode, unspecified; E83.42 Hypomagnesemia; Z99.81 Dependence on supplemental oxygen; R91.8 Other nonspecific abnormal finding of lung field; Z91.19 Patient's noncompliance with other medical treatment and regimen; Z79.899 Other long term (current) drug therapy; Z63.8 Other specified problems related to primary support group

== ENCOUNTER 2019-03-28 05:07 | Day surgery (SDC) | payer BC ==
[2019-03-28] MEDS ORDERED: LACTATED RINGERS 1,000 ML ONE (05:48)
[2019-03-28] MEDS ORDERED: LIDOCAINE 1% 10 ML VIAL INJ ONE (10:00)
[2019-03-28] MEDS ORDERED: PROPOFOL 200 MG/20 ML VIAL IV ONE (10:00)
--- NOTE | 2019-03-28 10:16 | OP ---
DATE OF PROCEDURE: 03/28/19 PREOPERATIVE DIAGNOSIS: 1. Average risk colon cancer screening. This is her first colonoscopy. POSTOPERATIVE DIAGNOSIS: 1. Three colonic polyps. 2. Diverticulosis. PROCEDURE: 1. Colonoscopy plus polypectomy. SURGEON: Manohar Isbell MD. COMPLICATIONS: None apparent. BLOOD LOSS: None. MEDICATIONS: Monitored anesthesia care. DESCRIPTION OF PROCEDURE: Informed consent was obtained prior to sedation. The preprocedure cardiopulmonary assessment was satisfactory. The patient was placed in the left lateral decubitus position and was sedated. A digital rectal exam was unremarkable. The tip of the Olympus colonoscope was inserted in the rectum and guided over to the cecum. The cecum was identified by locating the ileocecal valve and appendiceal orifice. Retroflexed view of the right colon was obtained. Prep was good. The mucosa of the cecum, ascending colon, hepatic flexure, transverse colon, splenic flexure, descending colon and sigmoid colon was closely examined. Direct and retroflexed views of the rectum were obtained. The patient had three small polyps, all less than 5 mm in size. One was in the cecum and two were in the descending colon. All three were removed with a cold snare and recovered. The patient had sigmoid diverticulosis. Otherwise, her colonoscopy was unremarkable. RECOMMENDATIONS: 1. Followup the polyp pathology. 2. Followup with me in 6 months regarding her issues of epigastric pain. She is on a proton pump inhibitor for standard reflux, but has had some other type of pain. I am going to followup with her on that in 6 months. She can come back sooner if needed. cc: Bill Avendaño MD [facility] HEALTH SYSTEMMillie
[2019-03-28 14:40] VITALS: BP 129/88; TEMP 96.6; O2SAT 96
== END 2019-03-28 09:40 | disposition home or self-care (01) ==
LOC: AMB 05:07
PROVIDERS: ATTEND Internal Medicine Gastroenterology
DX: Z12.11 Encounter for screening for malignant neoplasm of colon (principal); D12.0 Benign neoplasm of cecum; D12.4 Benign neoplasm of descending colon; K57.30 Diverticulosis of large intestine without perforation or abscess without bleeding; K21.9 Gastro-esophageal reflux disease without esophagitis; J45.909 Unspecified asthma, uncomplicated; F32.9 Major depressive disorder, single episode, unspecified
CPT/HCPCS: 00812; 45385; J3490; J7120

== ENCOUNTER → 2019-07-12 | Outpatient (CLI) | payer BC ==
--- NOTE | 2019-07-12 15:18 | RAD ---
EXAM DESCRIPTION: Knee,Right 1 or 2 Views CLINICAL HISTORY: 59 years Female, KNEE PAIN COMPARISON: None. Findings: Two views/radiographs Transverse minimally displaced patellar fracture. Large joint effusion. Mild medial compartment narrowing. No other fracture identified. Osteopenia. No dislocation. IMPRESSION: Transverse minimally displaced patellar fracture. Large joint effusion. Electronically signed by: Shalom Dudley MD 07/12/2019 3:16 PM [facility]
== END ==
LOC: RAD 10:07
PROVIDERS: ATTEND Orthopaedic Surgery
DX: S82.041A Displaced comminuted fracture of right patella, initial encounter for closed fracture (principal); M25.461 Effusion, right knee

== ENCOUNTER → 2019-08-03 | Outpatient (CLI) | payer BC | DX: S82.001D Unspecified fracture of right patella, subsequent encounter for closed fracture with routine healing (principal); M79.9 Soft tissue disorder, unspecified ==

== ENCOUNTER 2019-11-11 17:43 | Emergency (ER) | payer BC ==
[2019-11-11] MEDS ORDERED: HYDROcodone 10MG/APAP 325MG 1 EA TAB PO ONE (17:56)
[2019-11-11 18:02] VITALS: TEMP 98.3
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
--- NOTE | 2019-11-11 18:14 | RAD ---
EXAM: XR Right Wrist, 2 Views CLINICAL HISTORY: The patient is 59 years old and is Female; fall TECHNIQUE: Two views of the right wrist. COMPARISON: No relevant prior studies available. FINDINGS: Bones/joints: Comminuted displaced distal radius fracture. Displaced ulnar styloid fracture. Degenerative changes in the basal joint. No dislocation visualized. Soft tissues: Soft tissue swelling. No radiopaque foreign body. IMPRESSION: 1. Comminuted displaced distal radius fracture. 2. Displaced ulnar styloid fracture. Electronically signed by: Liz Tsang MD 11/11/2019 6:13 PM CDT
[2019-11-11 18:53] VITALS: BP 137/93; O2SAT 94
== END 2019-11-11 18:42 | disposition home or self-care (01) ==
LOC: ER 17:43
DX: S52.531A Colles' fracture of right radius, initial encounter for closed fracture (principal); J44.9 Chronic obstructive pulmonary disease, unspecified; F17.200 Nicotine dependence, unspecified, uncomplicated; Y04.2XXA Assault by strike against or bumped into by another person, initial encounter; Y92.9 Unspecified place or not applicable

== ENCOUNTER → 2019-11-22 | Outpatient (CLI) | payer BC | LOC: GMAJ 14:29 | PROVIDERS: ATTEND Family Medicine | DX: Z79.899 Other long term (current) drug therapy (principal) ==

== ENCOUNTER → 2020-06-06 | Outpatient (CLI) | payer BC | LOC: GMAJ 12:10 | PROVIDERS: ATTEND Family Medicine | DX: Z00.00 Encounter for general adult medical examination without abnormal findings (principal) ==